=== PATIENT | male | born 1950 | race Caucasian/White ===

== ENCOUNTER 2016-09-04 16:35 | Inpatient (IN) | payer OTHER, MEDICARE ==
[~2016-09-04] VITALS: Ht 182.9 cm; Wt 87.5 kg
[2016-09-04 16:37] VITALS: BP 135/82; PULSE 84; RESP 16; TEMP 97.8; O2SAT 97
[2016-09-04 17:44] VITALS: BP 142/92; PULSE 82; RESP 16; O2SAT 95
[2016-09-04] MEDS ORDERED: SODIUM CHLORIDE 0.9% FLUSH 10 ML FLUSH IVF PRN (17:45)
[2016-09-04] MEDS ORDERED: ASPIRIN 325 MG TAB PO ONE (17:45)
[2016-09-04] MEDS ORDERED: ASPI81TA11 PO (18:04)
[2016-09-04] MEDS ORDERED: LOSA100T PO (18:04)
--- NOTE | 2016-09-04 18:09 | RADRPT ---
EXAM DATE/TIME: 09/04/2016 17:52 [place] COMPARISON: No previous studies available for comparison. INDICATIONS : Chest pain. Short of breath. MEDICAL HISTORY : None. SURGICAL HISTORY : None. ENCOUNTER: Initial ACUITY: 2 days PAIN SCORE: 0/10 LOCATION: Bilateral chest FINDINGS: A single view of the chest demonstrates patchy basilar airspace disease. Small effusions. No pneumoth orax. Heart size upper limits normal. CONCLUSION: 1. Patchy basilar airspace disease with small effusions. Differential diagnosis includes pulmonary ed terry and bronchopneumonia. Marko Rain MD on September 04, 2016 at 18:04 Board Certified Radiologist. This report was verified electronically.
--- NOTE | 2016-09-04 18:11 | PD ---
HPI Chief Complaint: Chest Pain Time Seen by Provider: 18:07 Travel History International Travel<30 days: No Contact w/Intl Traveler<30days: No Traveled to known affect area: No History of Present Illness HPI 66-year-old male that presents to the ED for evaluation of shortness of breath with exertion. Per patient his been ongoing for the past couple weeks. Per patient it became more significant the past couple days and is [facility] and the told to come here. He denies any chest pain at this time. Per patient he only has the chest pain and shortness of breath only with exertion. Per patient he was able to "walked off" but is no longer the case. Per patient is progressively getting more significant. He denies any history of blood clots. He has a history of hypertension and old history of smoking. He takes an aspirin every day. No history of heart disease on himself. No bowel movement or urinary issues. No fevers chills or sweats. No cough or runny nose. No allergies to medication. No abdominal pain. No nausea or vomiting. Patient comes here with family in no acute distress. Patient did took a baby aspirin today. Per patient the discomfort at this time is 0 and he has no pain unless he starts to walk for some distance. Per patient he excused himself that sensation is more like pressure and is 4 out of 10. He does report that about a week ago he had an episode of syncope which she attributed to being outside on the heat. Per patient he had to put ice and rehydrate himself and he felt that this was related more to heat than anything else. He was not seen by anybody for this syncopal episode. [facility] Past Medical History Medical History: Denies Significant Hx Influenza Vaccination: No Past Surgical History Oral Surgery: Yes (JAW SURGERY) Social History Alcohol Use: Yes (OCCASIONALLY) Tobacco Use: No Substance Use: No Allergies-Medications (Allergen,Severity, Reaction): Coded Allergies: No Known Allergies (Unverified , 09/04/16) Reported Meds & Prescriptions Reported Meds & Active Scripts Active Reported Aspirin EC (Aspirin) 81 Mg Tabdr 81 Mg PO DAILY Losartan (Losartan Potassium) 100 Mg Tab 100 Mg PO DAILY Review of Systems Except as stated in HPI: all other systems reviewed are Neg Physical Exam Narrative GENERAL: SKIN: Warm and dry. HEAD: Atraumatic. Normocephalic. EYES: Pupils equal and round. No scleral icterus. No injection or drainage. ENT: No nasal bleeding or discharge. Mucous membranes pink and moist. Tongue is midline. No uvula deviation. NECK: Trachea midline. No JVD. CARDIOVASCULAR: Regular rate and rhythm. No murmurs, S3, S4. RESPIRATORY: No accessory muscle use. Clear to auscultation. Breath sounds equal bilaterally. GASTROINTESTINAL: Abdomen soft, non-tender, nondistended. Hepatic and splenic margins not palpable. MUSCULOSKELETAL: Extremities without clubbing, cyanosis, or edema. No obvious deformities. Full range of motion of the upper and lower extremities bilaterally. 2+ pulses bilaterally. No lumbar, thoracic, cervical spine tenderness to palpation. Chest is reproducible with touch. NEUROLOGICAL: Awake and alert. No obvious cranial nerve deficits. Motor grossly within normal limits. Five out of 5 muscle strength in the arms and legs. Normal speech. PSYCHIATRIC: Appropriate mood and affect; insight and judgment normal. Data Data Last Documented VS Vital Signs Date Time Temp Pulse Resp B/P Pulse Ox O2 Delivery O2 Flow Rate FiO2 09/04/16 17:44 82 16 142/92 95 Room Air 09/04/16 16:37 97.8 Orders Electrocardiogram (09/04/16 17:41) Basic Metabolic Panel (Bmp) (09/04/16 17:41) B-Type Natriuretic Peptide (09/04/16 17:41) Ckmb (Isoenzyme) Profile (09/04/16 17:41) Complete Blood Count With Diff (09/04/16 17:41) Magnesium (Mg) (09/04/16 17:41) Prothrombin Time / Inr (Pt) (09/04/16 17:41) Act Partial Throm Time (Ptt) (09/04/16 17:41) Troponin I (09/04/16 17:41) Chest, Single Ap (09/04/16 17:41) Ecg Monitoring (09/04/16 17:41) Bilateral Bp Monitoring (09/04/16 17:41) Iv Access Insert/Monitor (09/04/16 17:41) Oximetry (09/04/16 17:41) Oxygen Administration (09/04/16 17:41) Aspirin (Aspirin) (09/04/16 17:45) Sodium Chloride 0.9% Flush (Ns Flush) (09/04/16 17:45) CKMB (09/04/16 18:05) CKMB% (09/04/16 18:05) Nitroglycerin 2% Oint (Nitroglycerin 2% (09/04/16 19:00) Heparin Infusion MATTI.Q1H (09/04/16 18:53) Heparin Inj (Heparin Inj) (09/04/16 19:00) Heparin Inj (Heparin Inj) (09/05/16 01:00) Heparin Inj (Heparin Inj) (09/05/16 01:00) Heparin-D5w Inj (Heparin-D5w Inj) (09/04/16 19:00) Cbc No Diff, Includes Plts (09/07/16 06:00) Act Partial Throm Time (Ptt) (09/05/16 01:53) Occult Blood (Hemoccult) Stool (09/04/16 18:53) Admit Order (Ed Use Only) (09/04/16 19:40) Consult Cardiology (09/04/16 ) Labs Laboratory Tests Test 09/04/16 18:05 White Blood Count 8.1 TH/MM3 Red Blood Count 4.31 MIL/MM3 Hemoglobin 13.0 GM/DL Hematocrit 37.9 % Mean Corpuscular Volume 87.8 FL Mean Corpuscular Hemoglobin 30.1 PG Mean Corpuscular Hemoglobin 34.3 % Concent Red Cell Distribution Width 13.0 % Platelet Count 255 TH/MM3 Mean Platelet Volume 8.2 FL Neutrophils (%) (Auto) 62.1 % Lymphocytes (%) (Auto) 25.4 % Monocytes (%) (Auto) 9.6 % Eosinophils (%) (Auto) 2.2 % Basophils (%) (Auto) 0.7 % Neutrophils # (Auto) 5.0 TH/MM3 Lymphocytes # (Auto) 2.1 TH/MM3 Monocytes # (Auto) 0.8 TH/MM3 Eosinophils # (Auto) 0.2 TH/MM3 Basophils # (Auto) 0.1 TH/MM3 CBC Comment DIFF FINAL Differential Comment Prothrombin Time 10.2 SEC Prothromb Time International 0.9 RATIO Ratio Activated Partial 29.9 SEC Thromboplast Time Sodium Level 140 MEQ/L Potassium Level 4.1 MEQ/L Chloride Level 106 MEQ/L Carbon Dioxide Level 26.2 MEQ/L Anion Gap 8 MEQ/L Blood Urea Nitrogen 17 MG/DL Creatinine 1.01 MG/DL Estimat Glomerular Filtration 74 ML/MIN Rate Random Glucose 81 MG/DL Calcium Level 8.6 MG/DL Magnesium Level 2.1 MG/DL Total Creatine Kinase 317 U/L Creatine Kinase MB 30.5 NG/ML Creatine Kinase MB % 9.6 % Troponin I 7.81 NG/ML B-Type Natriuretic Peptide 389 PG/ML MDM Medical Decision Making Medical Screen Exam Complete: Yes Emergency Medical Condition: Yes Medical Record Reviewed: Yes Interpretation(s) CBC & BMP Diagram 09/04/16 18:05 BNP in the 300s troponin is 7 CKMB negative EKG did not show any sign of acute ST elevations read by me and my attending. Last Impressions Chest X-Ray 09/04/16 1741 Signed Impressions: Service Date/Time: Sunday, September 04, 2016 17:52 - CONCLUSION: 1. Patchy basilar airspace disease with small effusions. Differential diagnosis includes pulmonary edema and bronchopneumonia. Marko Rain MD Differential Diagnosis Chest pain versus atypical chest pain versus ACS versus angina versus pneumonia Narrative Course 66-year-old male that presents to the ED for evaluation of chest pain. Patient was properly examined and was found to have signs and symptoms consistent with appears to be cardiac. At this time I recommend labs and imaging. Patient agrees with this. Aspirin was ordered. Initial EKG did not show any sign of acute ischemia read by me and my attending. Labs did show elevated BNP, pulmonary edema, troponin of 7. Patient likely had an N-STEMI. Patient will be started on heparin. Patient was put on Nitropaste. Patient was told results and agrees with plan. He is still chest pain free and has no symptoms at this time. My attending Dr Bryson evaluated the patient with me and recommends admission and Cardiology eval as well as Heparin. Patient will be admitted. Dr. Narayan from Cardiology was contacted and he recommends admission. My attending spoke with him. Patient was started heparin and nitro paste. Patient was admitted to Dr. Khan who agrees to admission. Procedures EKG Prior to Arrival: No Diagnosis Primary Impression: Non-ST elevation (NSTEMI) myocardial infarction Admitting Information Admitting Physician Requests: Admit Surinder Miles Sep 04, 2016 18:11
[2016-09-04 18:21] LABS: BASOPHIL # 0.1 TH/MM3 (0-0.2); BASOPHIL % 0.7 % (0.0-2.0); EOSINOPHIL # 0.2 TH/MM3 (0-0.4); EOSINOPHIL % 2.2 % (0.0-4.0); HEMATOCRIT 37.9 % (39.0-51.0); HEMO FLAGS DIFF FINAL; LYMPH % 25.4 % (9.0-44.0); LYMPHOCYTE # 2.1 TH/MM3 (1.0-4.8); MEAN CELL VOLUME 87.8 FL (80.0-100.0); MEAN CORPUSCULAR HEMOGLOBIN 30.1 PG (27.0-34.0); MEAN CORPUSCULAR HGB CONC 34.3 % (32.0-36.0); MONO % 9.6 % (0.0-8.0); NEUT % 62.1 % (16.0-70.0); PLATELET COUNT 255 TH/MM3 (150-450); RED BLOOD COUNT 4.31 MIL/MM3 (4.50-5.90); WHITE BLOOD COUNT 8.1 TH/MM3 (4.0-11.0)
[2016-09-04 18:32] LABS: APTT (PATIENT) 29.9 SEC (24.3-30.1); INTERNATIONAL NORMALIZED RATIO 0.9 RATIO; PROTHROMBIN TIME - PATIENT 10.2 SEC (9.8-11.6)
[2016-09-04 18:39] LABS: BICARBONATE 26.2 MEQ/L (21.0-32.0); MAGNESIUM 2.1 MG/DL (1.5-2.5); POTASSIUM 4.1 MEQ/L (3.5-5.1)
[2016-09-04] MEDS ORDERED: HEPARIN SODIUM - IV 10,000 UNITS/10 ML VIAL IV ONE (19:00)
[2016-09-04] MEDS ORDERED: NITROGLYCERIN 2% OINT 1 GM PACKET TOPICAL ONE (19:00)
[2016-09-04 19:01] LABS: CKMB 30.5 NG/ML (0.5-3.6)
[2016-09-04] MEDS: HEPARIN-D5W INJ 250 ML IV SCH (19:07)
--- NOTE | 2016-09-04 19:10 | PD ---
Data Data Last Documented VS Vital Signs Date Time Temp Pulse Resp B/P Pulse Ox O2 Delivery O2 Flow Rate FiO2 09/04/16 17:44 82 16 142/92 95 Room Air 09/04/16 16:37 97.8 Orders Electrocardiogram (09/04/16 17:41) Basic Metabolic Panel (Bmp) (09/04/16 17:41) B-Type Natriuretic Peptide (09/04/16 17:41) Ckmb (Isoenzyme) Profile (09/04/16 17:41) Complete Blood Count With Diff (09/04/16 17:41) Magnesium (Mg) (09/04/16 17:41) Prothrombin Time / Inr (Pt) (09/04/16 17:41) Act Partial Throm Time (Ptt) (09/04/16 17:41) Troponin I (09/04/16 17:41) Chest, Single Ap (09/04/16 17:41) Ecg Monitoring (09/04/16 17:41) Bilateral Bp Monitoring (09/04/16 17:41) Iv Access Insert/Monitor (09/04/16 17:41) Oximetry (09/04/16 17:41) Oxygen Administration (09/04/16 17:41) Aspirin (Aspirin) (09/04/16 17:45) Sodium Chloride 0.9% Flush (Ns Flush) (09/04/16 17:45) CKMB (09/04/16 18:05) CKMB% (09/04/16 18:05) Nitroglycerin 2% Oint (Nitroglycerin 2% (09/04/16 19:00) Heparin Infusion MATTI.Q1H (09/04/16 18:53) Heparin Inj (Heparin Inj) (09/04/16 19:00) Heparin Inj (Heparin Inj) (09/05/16 01:00) Heparin Inj (Heparin Inj) (09/05/16 01:00) Heparin-D5w Inj (Heparin-D5w Inj) (09/04/16 19:00) Act Partial Throm Time (Ptt) (09/04/16 18:53) Prothrombin Time / Inr (Pt) (09/04/16 18:53) Cbc No Diff, Includes Plts (09/04/16 18:53) Cbc No Diff, Includes Plts (09/07/16 06:00) Act Partial Throm Time (Ptt) (09/05/16 01:53) Occult Blood (Hemoccult) Stool (09/04/16 18:53) Labs Laboratory Tests Test 09/04/16 18:05 White Blood Count 8.1 TH/MM3 Red Blood Count 4.31 MIL/MM3 Hemoglobin 13.0 GM/DL Hematocrit 37.9 % Mean Corpuscular Volume 87.8 FL Mean Corpuscular Hemoglobin 30.1 PG Mean Corpuscular Hemoglobin 34.3 % Concent Red Cell Distribution Width 13.0 % Platelet Count 255 TH/MM3 Mean Platelet Volume 8.2 FL Neutrophils (%) (Auto) 62.1 % Lymphocytes (%) (Auto) 25.4 % Monocytes (%) (Auto) 9.6 % Eosinophils (%) (Auto) 2.2 % Basophils (%) (Auto) 0.7 % Neutrophils # (Auto) 5.0 TH/MM3 Lymphocytes # (Auto) 2.1 TH/MM3 Monocytes # (Auto) 0.8 TH/MM3 Eosinophils # (Auto) 0.2 TH/MM3 Basophils # (Auto) 0.1 TH/MM3 CBC Comment DIFF FINAL Differential Comment Prothrombin Time 10.2 SEC Prothromb Time International 0.9 RATIO Ratio Activated Partial 29.9 SEC Thromboplast Time Sodium Level 140 MEQ/L Potassium Level 4.1 MEQ/L Chloride Level 106 MEQ/L Carbon Dioxide Level 26.2 MEQ/L Anion Gap 8 MEQ/L Blood Urea Nitrogen 17 MG/DL Creatinine 1.01 MG/DL Estimat Glomerular Filtration 74 ML/MIN Rate Random Glucose 81 MG/DL Calcium Level 8.6 MG/DL Magnesium Level 2.1 MG/DL Total Creatine Kinase 317 U/L Troponin I 7.81 NG/ML B-Type Natriuretic Peptide 389 PG/ML [facility] Supervised Visit with ALEX: Yes Narrative Course The history, exam, and medical decision-making in the associated mid-level provider note were completed with my assistance. I reviewed and agree with the findings presented. I attest that I had a [id number] encounter with the patient on the same day, and personally performed and documented my assessment and findings in the medical record. *My assessment and Findings: 66-year-old man with exertional pressure-like chest discomfort and shortness of breath ongoing for couple weeks, gradually worsening, concerning for ACS or CHF. EKG shows some nonspecific lateral ST changes. Initial troponin is elevated about 7. Patient is having and STEMI, and possibly had an AR earlier about a week or so ago and is not having heart failure symptoms as well. We'll plan on heparin, nitroglycerin, admission to medicine, cardiology consult. Patient has not had any chest discomfort or shortness of breath since being in the emergency department. Diagnosis Primary Impression: Non-ST elevation (NSTEMI) myocardial infarction Brandon Bryson MD Sep 04, 2016 19:10
[2016-09-04] MEDS ORDERED: NALOXONE HCL 0.4 MG/ML AMP IV PRN (20:00)
[2016-09-04] MEDS ORDERED: SODIUM CHLORIDE 0.9% FLUSH 10 ML FLUSH IV FLUSH PRN (20:00)
[2016-09-04] MEDS: SODIUM CHLORIDE 0.9% FLUSH 10 ML FLUSH IV FLUSH SCH (21:00)
[2016-09-04 22:16] VITALS: BP 118/69; PULSE 73; RESP 18; TEMP 98.3; O2SAT 95
[2016-09-04 22:30] VITALS: PULSE 73
--- NOTE | 2016-09-04 23:44 | HHI.HP ---
[facility] Service [facility] Primary Care Physician [facility] Admission Diagnosis NSTEMI, pulmonary edema Diagnoses: Chief Complaint: SOB with exertion Travel History International Travel<30 Days: No Contact w/Intl Traveler <30 Da: No Traveled to Known Affected Are: No History of Present Illness Written by Ada Cowart, acting as scribe for Dr. Khan on 09/04/16 at 23: 51. The pleasant 66-year-old male gentleman with past medical history which includes hypertension. Patient reports he usually walks every morning but over the past few weeks he has had SOB and near vomiting with this exertion. Then last Saturday patient was out in the heat waxing a car and reports he got, "over heated." Patient was laying down trying to cool off then vomited and passed out on 08/28/16. Since that time he has continued to have SOB and noticed that he fatigues more easily over the past few weeks. SOB worse with exertion better with rest. Patient report, "As long as I'm sitting still I feel fine." At first patient denies specific chest pain reports then, "maybe a little pain." Patient unable to elaborate on description of chest pain. Initial troponin 7.81. Initial EKG reviewed and reveals SR rate 77 bpm with no acute ST changes noted Of note patient traveled from [place] via Saturday08/30/16, patient denies calf edema or pain. Patient continued to have SOB with exertion therefore proceeded to the [facility] for evaluation and was referred to ER for further evaluation Review of Systems Except as stated in HPI: all other systems reviewed are Neg Past Family Social History Past Medical History HTN Past Surgical History Colonoscopy 2012 polypectomy repair of jaw fracture Reported Medications Aspirin EC (Aspirin) 81 Mg Tabdr 81 Mg PO DAILY Losartan (Losartan Potassium) 100 Mg Tab 100 Mg PO DAILY Allergies: Coded Allergies: No Known Allergies (Unverified , 09/04/16) Active Ordered Medications Current Medications Medications (Trade) Dose Ordered Sig/Luz Marina Route Start Time Stop Time Status Last Admin (Heparin Inj) 5,000 units UNSCH PRN IV 09/05/16 01:00 Heparin Sodium (Porcine) 2500 units 2,500 units UNSCH PRN IV 09/05/16 01:00 (Heparin-D5W Inj) 250 ml @ 0 mls/hr TITRATE IV 09/04/16 19:00 09/04/16 19:07 (NS Flush) 2 ml UNSCH PRN IV FLUSH 09/04/16 20:00 (NS Flush) 2 ml BID IV FLUSH 09/04/16 21:00 (Narcan Inj) 0.4 mg UNSCH PRN IV 09/04/16 20:00 (Ecotrin Ec) 81 mg DAILY PO 09/05/16 09:00 (Cozaar) 100 mg DAILY PO 09/05/16 09:00 Family History father secondary to esophogeal CA mother secondary to CVA no cardiac issues in family members <40 years old Social History Quit smoking 20 years ago moderate ETOH use not ion a daily basis Physical Exam Vital Signs Vital Signs Date Time Temp Pulse Resp B/P Pulse Ox O2 Delivery O2 Flow Rate FiO2 09/04/16 17:44 82 16 142/92 95 Room Air 09/04/16 16:37 97.8 84 16 135/82 97 Physical Exam GENERAL: This is a well-nourished, well-developed patient, in no apparent distress. SKIN: No rashes, ecchymoses or lesions. Cool and dry. HEAD: Atraumatic. Normocephalic. No temporal or scalp tenderness. EYES: Extraocular motions intact. No scleral icterus. No injection or drainage. CARDIOVASCULAR: Regular rate and rhythm without murmurs, gallops, or rubs. RESPIRATORY: Clear to auscultation. Breath sounds equal bilaterally. No wheezes , rales, or rhonchi. GASTROINTESTINAL: Abdomen soft, non-tender, nondistended. No hepato-splenomegaly , or palpable masses. No guarding. MUSCULOSKELETAL: Extremities without clubbing, cyanosis, or edema. No joint tenderness, effusion, or edema noted. No calf tenderness. Negative Homans sign bilaterally. NEUROLOGICAL: Awake and alert. No focal deficits appreciated. Motor and sensory grossly within normal limits. Five out of 5 muscle strength in all muscle groups. Normal speech. Laboratory Laboratory Tests Test 09/04/16 18:05 White Blood Count 8.1 Red Blood Count 4.31 Hemoglobin 13.0 Hematocrit 37.9 Mean Corpuscular Volume 87.8 Mean Corpuscular Hemoglobin 30.1 Mean Corpuscular Hemoglobin 34.3 Concent Red Cell Distribution Width 13.0 Platelet Count 255 Mean Platelet Volume 8.2 Neutrophils (%) (Auto) 62.1 Lymphocytes (%) (Auto) 25.4 Monocytes (%) (Auto) 9.6 Eosinophils (%) (Auto) 2.2 Basophils (%) (Auto) 0.7 Neutrophils # (Auto) 5.0 Lymphocytes # (Auto) 2.1 Monocytes # (Auto) 0.8 Eosinophils # (Auto) 0.2 Basophils # (Auto) 0.1 CBC Comment DIFF FINAL Differential Comment Prothrombin Time 10.2 Prothromb Time International 0.9 Ratio Activated Partial 29.9 Thromboplast Time Sodium Level 140 Potassium Level 4.1 Chloride Level 106 Carbon Dioxide Level 26.2 Anion Gap 8 Blood Urea Nitrogen 17 Creatinine 1.01 Estimat Glomerular Filtration 74 Rate Random Glucose 81 Calcium Level 8.6 Magnesium Level 2.1 Total Creatine Kinase 317 Creatine Kinase MB 30.5 Creatine Kinase MB % 9.6 Troponin I 7.81 B-Type Natriuretic Peptide 389 Result Diagram: 09/04/16 1805 09/04/16 180 Imaging Last Impressions Chest X-Ray 09/04/16 1741 Signed Impressions: Service Date/Time: Sunday, September 04, 2016 17:52 - CONCLUSION: 1. Patchy basilar airspace disease with small effusions. Differential diagnosis includes pulmonary edema and bronchopneumonia. Marko Rain MD Assessment and Plan Problem List: (1) Non-ST elevation (NSTEMI) myocardial infarction ICD Code: I21.4 Status: Acute Assessment and Plan The pleasant 66-year-old male gentleman with past medical history which includes hypertension. Presents to the emergency department due to worsening shortness of breath with exertion and troponin of 7.81 NSTEMI: Initial troponin elevated 7.81 Initial EKG reviewed and reveals sinus rhythm rate 77 bpm with no acute ST changes noted continue serial troponin and EKG Continuous court recording monitor Consult cardiology- ER MD spoke with Dr. Narayan Heparin drip, nitro paste aspirin daily NPO after midnight Lipid profile in AM Chest x-ray reviewed and reveals patchy bilateral air space disease with small effusions. Differential diagnosis includes pulmonary edema and bronchial pneumonia HTN- chronic continue home medication losartan 100mg daily DVT prophylaxis patient on heparin drip Discussed with ER provider, nursing, patient and at bedside Physician Certification 2 Midnight Certification Type: Admission for Inpatient Services Order for Inpatient Services The services are ordered in accordance with Medicare regulations or non- Medicare payer requirements, as applicable. In the case of services not specified as inpatient-only, they are appropriately provided as inpatient services in accordance with the 2-midnight benchmark. Estimated LOS (days): 3 days is the estimated time the patient will need to remain in the hospital, assuming treatment plan goals are met and no additional complications. Post-Hospital Plan: Home Ada Cowart Sep 04, 2016 23:44
[2016-09-05] VITALS (24 sets, daily range): BP systolic 112–135; BP diastolic 55–80; PULSE 60–80; RESP 18–20; TEMP 97.8–98.8; O2SAT 94–97
[2016-09-05] MEDS: NITROGLYCERIN 2% OINT 1 GM PACKET TOPICAL SCH ×4 (00:45→18:00)
[2016-09-05] MEDS ORDERED: HEPARIN SODIUM - IV 10,000 UNITS/10 ML VIAL IV PRN ×2 (01:00)
[2016-09-05 05:58] LABS: AUTOMATED NEUTROPHIL # 4.4 TH/MM3 (1.8-7.7); BASOPHIL % 0.6 % (0.0-2.0); EOSINOPHIL # 0.2 TH/MM3 (0-0.4); EOSINOPHIL % 2.6 % (0.0-4.0); HEMATOCRIT 34.8 % (39.0-51.0); HEMO FLAGS DIFF FINAL; LYMPH % 28.2 % (9.0-44.0); LYMPHOCYTE # 2.1 TH/MM3 (1.0-4.8); MEAN CELL VOLUME 86.8 FL (80.0-100.0); MEAN CORPUSCULAR HEMOGLOBIN 30.3 PG (27.0-34.0); MEAN CORPUSCULAR HGB CONC 34.9 % (32.0-36.0); MONO % 9.7 % (0.0-8.0); NEUT % 58.9 % (16.0-70.0); PLATELET COUNT 231 TH/MM3 (150-450); RED BLOOD COUNT 4.01 MIL/MM3 (4.50-5.90); RED CELL DISTRIBUTION WIDTH 13.2 % (11.6-17.2); WHITE BLOOD COUNT 7.5 TH/MM3 (4.0-11.0)
[2016-09-05 06:27] LABS: BICARBONATE 23.2 MEQ/L (21.0-32.0); POTASSIUM 3.8 MEQ/L (3.5-5.1)
[2016-09-05 06:32] LABS: HDL CHOLESTEROL 39.2 MG/DL (40.0-60.0)
--- NOTE | 2016-09-05 06:50 | EKG ---
Date Performed: 09/04/2016 Time Performed: 17:53:30 PTAGE: 66 years EKG: Sinus rhythm NONSPECIFIC ST & T-WAVE ABNORMALITY BORDERLINE ECG NO PREVIOUS TRACING DOCTOR: Irving Sandra Interpretating Date/Time 09/05/2016 06:48:23
[2016-09-05] MEDS ORDERED: LOSARTAN 50 MG TAB PO SCH (09:00)
[2016-09-05] MEDS: ASPIRIN EC 81 MG TABEC PO SCH (09:21)
[2016-09-05] MEDS: SODIUM CHLORIDE 0.9% FLUSH 10 ML FLUSH IV FLUSH SCH (09:21)
--- NOTE | 2016-09-05 09:35 | HHI.PR ---
Subjective Remarks This is a pleasant 66 y/o Male with Hypertension, Then last Saturday patient was out in the heat waxing a car and reports he got, "over heated." Patient was laying down trying to cool off then vomited and passed out on . Since that time he has continued to have SOB and noticed that he fatigues more easily over the past few weeks. SOB worse with exertion better with rest. complaint of Chest pain and his Troponin 7.81 He has Hypertension. 09/05: Seen in his bedroom in the presence of his , with Cardiac Cath with multivessel disease status post Cardiovascular home care specialist consult for CABG next week. No nausea, vomit or diarrhea, no chest pain. Objective Vital Signs Date Time Temp Pulse Resp B/P Pulse Ox O2 Delivery O2 Flow Rate FiO2 09/05/16 06:00 62 09/05/16 05:00 64 09/05/16 04:00 98.4 66 18 115/67 95 09/05/16 04:00 66 09/05/16 03:00 63 09/05/16 02:00 74 09/05/16 01:00 68 09/05/16 00:00 76 09/04/16 22:30 73 09/04/16 22:16 98.3 73 18 118/69 95 09/04/16 17:44 82 16 142/92 95 Room Air 09/04/16 16:37 97.8 84 16 135/82 97 I/O 09/04/16 09/04/16 09/04/16 09/05/16 09/05/16 09/05/16 07:00 15:00 23:00 07:00 15:00 23:00 Output Total 600 ml Balance -600 ml Output Urine Total 600 ml Result Diagram: 09/05/16 0500 09/05/16 0500 Imaging Last Impressions Chest X-Ray 09/04/16 9921 Signed Impressions: Service Date/Time: Sunday, September 04, 2016 17:52 - CONCLUSION: 1. Patchy basilar airspace disease with small effusions. Differential diagnosis includes pulmonary edema and bronchopneumonia. Marko Rain MD Procedures No procedures performed. Other Results Laboratory Tests Test 09/04/16 09/05/16 09/05/16 18:05 02:14 05:00 Prothrombin Time 10.2 SEC Prothromb Time International 0.9 RATIO Ratio Magnesium Level 2.1 MG/DL Creatine Kinase MB 30.5 NG/ML Creatine Kinase MB % 9.6 % B-Type Natriuretic Peptide 389 PG/ML Activated Partial 42.0 SEC Thromboplast Time White Blood Count 7.5 TH/MM3 Red Blood Count 4.01 MIL/MM3 Hemoglobin 12.2 GM/DL Hematocrit 34.8 % Mean Corpuscular Volume 86.8 FL Mean Corpuscular Hemoglobin 30.3 PG Mean Corpuscular Hemoglobin 34.9 % Concent Red Cell Distribution Width 13.2 % Platelet Count 231 TH/MM3 Mean Platelet Volume 8.5 FL Neutrophils (%) (Auto) 58.9 % Lymphocytes (%) (Auto) 28.2 % Monocytes (%) (Auto) 9.7 % Eosinophils (%) (Auto) 2.6 % Basophils (%) (Auto) 0.6 % Neutrophils # (Auto) 4.4 TH/MM3 Lymphocytes # (Auto) 2.1 TH/MM3 Monocytes # (Auto) 0.7 TH/MM3 Eosinophils # (Auto) 0.2 TH/MM3 Basophils # (Auto) 0.0 TH/MM3 CBC Comment DIFF FINAL Differential Comment Sodium Level 139 MEQ/L Potassium Level 3.8 MEQ/L Chloride Level 106 MEQ/L Carbon Dioxide Level 23.2 MEQ/L Anion Gap 10 MEQ/L Blood Urea Nitrogen 20 MG/DL Creatinine 1.04 MG/DL Estimat Glomerular Filtration 72 ML/MIN Rate Random Glucose 94 MG/DL Calcium Level 8.1 MG/DL Total Creatine Kinase 257 U/L Troponin I 9.07 NG/ML Triglycerides Level 78 MG/DL Cholesterol Level 143 MG/DL LDL Cholesterol 88 MG/DL HDL Cholesterol 39.2 MG/DL Cholesterol/HDL Ratio 3.64 RATIO Objective Remarks GENERAL: This is a well-nourished, well-developed patient, in no apparent distress. SKIN: No rashes, ecchymoses or lesions. Cool and dry. HEAD: Atraumatic. Normocephalic. No temporal or scalp tenderness. EYES: Extraocular motions intact. No scleral icterus. No injection or drainage. CARDIOVASCULAR: Regular rate and rhythm without murmurs, gallops, or rubs. RESPIRATORY: Clear to auscultation. Breath sounds equal bilaterally. No wheezes , rales, or rhonchi. GASTROINTESTINAL: Abdomen soft, non-tender, nondistended. No hepato-splenomegaly , or palpable masses. No guarding. MUSCULOSKELETAL: Extremities without clubbing, cyanosis, or edema. No joint tenderness, effusion, or edema noted. No calf tenderness. Negative Homans sign bilaterally. NEUROLOGICAL: Awake and alert. No focal deficits appreciated. Motor and sensory grossly within normal limits. Five out of 5 muscle strength in all muscle groups. Normal speech. Medications and IVs Current Medications Medications (Trade) Dose Ordered Sig/Luz Marina Route Start Time Stop Time Status Last Admin (Heparin Inj) 5,000 units UNSCH PRN IV 09/05/16 01:00 Heparin Sodium (Porcine) 2500 units 2,500 units UNSCH PRN IV 09/05/16 01:00 (Heparin-D5W Inj) 250 ml @ 0 mls/hr TITRATE IV 09/04/16 19:00 09/04/16 19:07 (NS Flush) 2 ml UNSCH PRN IV FLUSH 09/04/16 20:00 (NS Flush) 2 ml BID IV FLUSH 09/04/16 21:00 09/05/16 09:21 (Narcan Inj) 0.4 mg UNSCH PRN IV 09/04/16 20:00 (Ecotrin Ec) 81 mg DAILY PO 09/05/16 09:00 09/05/16 09:21 (Cozaar) 100 mg DAILY PO 09/05/16 09:00 09/05/16 09:21 (Nitroglycerin 2% Oint) 1 inch Q6HR TOPICAL 09/05/16 00:45 09/05/16 05:57 A/P Assessment and Plan 1. NSTEMI 66-year-old male with hypertension. Presents to the emergency department due to worsening shortness of breath with exertion and troponin of 7.81 Initial troponin elevated 7.81 Initial EKG reviewed and reveals sinus rhythm rate 77 bpm with no acute ST changes noted Continuous monitoring manager Status post Cardiac Catheterization with Multivessel disease as per fulfillment specialist for CABG next week. Heparin drip, nitro paste aspirin daily Chest x-ray reviewed and reveals patchy bilateral air space disease with small effusions. Differential diagnosis includes pulmonary edema and bronchial pneumonia HTN- chronic Controlled. continue home medication losartan 100mg daily DVT prophylaxis patient on heparin drip Discussed with Patient his and nurse Cristiana, all questions answered to the best of my abilities. Discharge Planning not yet cleared by Specialists. Tylor Kenney MD Sep 05, 2016 09:35
--- NOTE | 2016-09-05 09:53 | EKG ---
Date Performed: 09/05/2016 Time Performed: 05:30:36 PTAGE: 66 years EKG: Sinus rhythm Anterolateral ST-T changes, consider ischemia Abnormal ECG PREVIOUS TRACING : 09/05/2016 01.57 No significant change from previous tracing noted. DOCTOR: Irving Sandra Interpretating Date/Time 09/05/2016 09:53:25
--- NOTE | 2016-09-05 10:01 | EKG ---
Date Performed: 09/05/2016 Time Performed: 01:57:32 PTAGE: 66 years EKG: Sinus rhythm with borderline 1st degree A-V block Extensive ST-T changes are nonspecific Borderline ECG PREVIOUS TRACING : 09/04/2016 17.53 No significant change from previous tracing noted. DOCTOR: Irving Sandra Interpretating Date/Time 09/05/2016 09:59:51
[2016-09-05 10:03] LABS: APTT (PATIENT) 37.4 SEC (24.3-30.1)
--- NOTE | 2016-09-05 10:06 | MB ---
cc: OFELIA WILKINS DATE OF CONSULTATION 09/05/2016 DATE OF 1950 REASON FOR CONSULTATION Dpu-EY-zkgnmbytb TX. HISTORY OF PRESENT ILLNESS 66-year-old male with a cardiac risk factors that include hypertension and family history who presented to the emergency department with complaints of diaphoresis shortness of breath and mild chest pain. He was evaluated in the emergency. EKG revealed sinus rhythm with known specific ST changes, however initial cardiac markers were as high as 7.8. Note, the patient was admitted for a ofa-BO-kurpsyymi TX. He spent the night in the [facility]. He was started on a heparin drip, as well as aspirin and nitro-paste and consulted to cardiology for further management and evaluation. This morning, he reports feeling fine. He denies any cardiovascular complaints. REVIEW OF SYSTEMS Negative except for what is mentioned in the HPI. PAST MEDICAL HISTORY Hypertension MEDICATIONS Home medication, Losartan. ALLERGIES NO KNOWN DRUG ALLERGIES. PAST SURGICAL HISTORY 1. Colonoscopy in 2011 2. Repair of a radial fracture FAMILY HISTORY Dad had CAD as well as mother and he has a sister with diabetes. SOCIAL HISTORY He quit smoking 20 years ago. He drinks alcohol socially. He denies any illicit drug use. PHYSICAL EXAMINATION VITAL SIGNS: Temperature 98, respiratory rate 18, pulse 62, blood pressure 115/ 67, O2 sat 95% room air. GENERAL: Her is awake, alert and oriented x3 in no acute distress. NECK: No JVD. No carotid bruits. HEART: Regular rate and rhythm. No murmurs, rubs or gallops. LUNGS: Clear to auscultation bilaterally. No wheezes or rhonchi or rales. ABDOMEN: Soft, nontender, nondistended with positive bowel sounds. EXTREMITIES: No cyanosis or edema. Pulses throughout. DATA CBC hemoglobin 12, hematocrit 34, platelet count 231, INR 0.9. Sodium 139, potassium 3.8, BUN 20, creatinine 1.04, troponin 7.81, 10, and 9.07. BNP 389, triglycerides 78, cholesterol 143, LDL 88, HDL 39. Chest x-ray, small pleural effusions suggestive of some pulmonary edema. EKG normal sinus rhythm with nonspecific ST changes. ASSESSMENT/PLAN 66-year-old male with cardiac risk factors that include hypertension, family history of CAD who presented to the hospital with a with a hnh-ME-axjsibygc TX. His AJ risk score is 3. He has been started on heparin. Currently he remains chest pain free and hemodynamically stable. Given presentation and AJ risk score, I think it would be reasonable to take him to the cardiac offset label rewinder for an early invasive strategy. The risks and benefits of left heart cath/ PCI including, but not limited to neurovascular trauma, infection, bleeding, acute kidney injury, stroke, emergent bypass surgery and has been explained to the patient, the patient understands the risk and is willing to proceed. RECOMMENDATIONS 1. Keep n.p.o. for left heart cath today. 2. Continue aggressive medical management for non-STEMI. Cont, Heparin drip aspirin, beta blockers, statin, JEFFERY Inhibitors. 3. Get 2-D echo to assess LV systolic function. Thank you for the opportunity to participate in the care of this patient. Follow up therapy to be determined. MD ERYN Horan/GERA /9:38 AM /10:02 AM RADHA
[2016-09-05] MEDS ORDERED: HEPARIN-NS/PF INJ 500 ML ONE (10:26)
[2016-09-05] MEDS ORDERED: IOHEXOL 350 MG/ML 50 ML BTL (for Cath Lab) OTHER ONE (10:37)
[2016-09-05] MEDS ORDERED: MIDAZOLAM HCL 2 MG/2 ML VIAL ONE (10:42)
[2016-09-05] MEDS ORDERED: NITROGLYCERIN INJ 5 ML ONE (11:14)
--- NOTE | 2016-09-05 11:33 | CATHPROC ---
Patient Name: TAMIKO POND Study #: [id number] Initial MD: Juan Daniel Solares Date of : 1950 Study Date: 09/05/2016 Cardiac Catheterization Report 09/05/2016 11:33:03 AM Financial #: [id number] 1 of 11 Patient Name: TAMIKO POND Study #: [id number] Initial MD: Juan Daniel Solares Date of : 1950 Study Date: 09/05/2016 Entire Case Report Patient Information Patient Name TAMIKO POND Date of 1950 Age 66 years Financial # [id number] Gender M AlternateID Lab Number 3 Room Number 248 Height (in) 72.0 Height (cm) 182.9 BSA 2.14 Weight (lbs) 202.4 Weight (kg) 92.0 Patient Address/Phone Number Home Address [facility] Home Phone Number [address] [facility] [id number] Study Information Study Number Admission Scheduled Start Study Start [id number] Sep 04 2016 7:42PM 09/05/2016 Sep 05 2016 10:33AM [facility] Cardiac Catheterization Admit Source Facility Department [facility] - Chemical Process Engineer Physician and Clinical Staff Initial Juan Daniel Foreman Forest Fire Lookoutclaudia Pino RN, Oneal Forest Fire LookoutAinsley Cobos RN Recorder Paul Dykes,RT(R) Scrub Anais Fuentes,RT(R) Procedures Performed Procedure Location (Site) Vessel Name Coronary Angiograms LCA Left Coronary Coronary Angiograms RCA Right Coronary L Heart Cath LV Gram-hand inj. LV LV Ventricle 09/05/2016 11:33:03 AM Financial #: [id number] 2 of 11 Patient Name: TAMIKO POND Study #: [id number] Initial MD: Juan Daniel Solares Date of : 1950 Study Date: 09/05/2016 Equipment Time E Business Project Manager Description Size Mfg Part Number Used/Scraped PERCLOSE, PRO GLIDE CLOSER 11:20 [place] CRITICAL [place]ARE FR 6 [id number] *[id number] Used DEVICE TRANSDUCER, TRUWAVE [id number] 11:04 BLEVINS RIDDLE * Used W/STOCKCOCK *[id number]-502-10.0- INTRODUCER SET, 11:04 [employer]OOK [employer]. FR 5 SC-NT-U-SST Used MICROPUNCTURE, STIFFENED *[id number] [id number] *[id number] 534-621T *[id number] 11:04 ReferStar INDUSTRIES PACK, CCL CUSTOM * Used *[id number] PSI-[id number]- 11:06 [employer] MEDICAL SHEATH, FR6.5 PRELUDE 11CM FR 6.5 038ACT Used *[id number] 11:04 [employer] MEDICAL WIRE, 3MMJ .035 180CM 180CM Used *[id number] 11:04 NAMIC MANIFOLD, 4 PORT * Used *[id number] 11:04 NYCOMED OMNIPAQUE, 350 MG, 150ML 150ML [id number] Used [id number] 11:04 ALICEA MEDICAL BLANKET,WARM AIR CCL * Used *[id number] 11:04 TERUMO MEDICAL SHEATH, FR5 TERUMO (10CM) FR 5 [id number] Used Equipment Model, Serial, Lot Number and Expiration Data Description Model Number Serial Number Lot Number Expiration Date PERCLOSE, PRO GLIDE CLOSER [id number] 05-15-2018 DEVICE SHEATH, FR6.5 PRELUDE 11CM [id number] 07-16-2019 Insurance Information Insurance Payor Medicare Third Democrat Third Democrat Number NF [facility] History: Allergies Allergy Reaction No Known Allergies 09/05/2016 11:33:03 AM Financial #: [id number] Patient Name: TAMIKO POND Study #: [id number] Initial MD: Juan Daniel Solares Date of : 1950 Study Date: 09/06/19 17 History: Risk Factors Family History of Hypertension Dyslipidemia Previous CA Previous Heart Failure Premature CAD Yes No Yes No No Prior Valve Prior PCI Prior CABG Surgery No No No Cerebrovascular Peripheral Artery Chronic Lung On Dialysis Diabetes Disease Disease Disease No No No No No History: Symptoms/Diagnosis Selection Items Chest pain History: Stress Tests Stress or Imaging Studies Performed No History: Other Disease Selection Items HTN History: Other Current Smoker Method Quit Packs a Day Years Used Pack Years No Cigarettes 20 Years Ago 1 10 10 Labs Hgb (g/dl) Hct (%) RBC (MIL/MM3) WBC (l/cumm) Platelets (thousands) 12.00-18.00 37.00-55.00 4.80-6.20 4.80-10.80 140.00-450.00 12.2 34.8 4 7.5 231 Glucose (mg/dl) BUN (mg/dl) Creatinine (mg/dl) BUN:Creatinine (1:x) 60.00-110.00 8.00-20.00 0.10-9.00 10.00-20.00 94 20 1.0 20 Na (meq/l) K (meq/l) Cl (meq/l) CO2 (mmol/L) Ca (mg/dl) 138.00-146.00 3.80-5.10 101.00-111.00 23.00-30.00 9.00-10.50 139 3.8 106 23.2 8.1 PT (sec) PTT (sec) INR (PTT:PT) 9.40-11.40 25.10-32.70 0.50-2.00 10.2 37.4 0.9 Troponin I (ng/ml) CPK (u/l) CPK-MB (ng/ML) 0.40-2.30 37.00-289.00 0.00-7.00 9 257 Not Drawn 09/05/2016 11:33:03 AM Financial #: [id number] Patient Name: TAMIKO POND Study #: [id number] Initial MD: Juan Daniel Solares Date of : 1950 Study Date: 09/05 Medication Medication Total Dose (Bolus/Oral) Medication Total Dosage/Unit 1% XYLOCAINE 20 mL FENTANYL 100 mcg NTG (IC) 200 mcg VERSED 2 mg Medications (Bolus/Oral) Medication Time Given Dosage/Unit Administered By Reason FENTANYL 09/05/2016 11:03:18 AM 50 mcg Alvarez PEACE, Oneal 50 mcg FENTANYL given in lab by Oneal Pino RN in Left Antecubital via Peripheral IV. VERSED 09/05/2016 11:03:20 AM 2 mg Alvarez PEACE, Oneal 2 mg VERSED given in lab by Oneal Pino RN in Left Antecubital via Peripheral IV. 1% XYLOCAINE 09/05/2016 11:04:01 AM 20 mL Oneal Pino RN 20 mL 1% XYLOCAINE given in lab by Oneal Pino RN in Right Groin via Subcutaneous. NTG (IC) 09/05/2016 11:14:16 AM 100 mcg Rain-Shoshana, Juan Daniel 100 mcg NTG (IC) given in lab by Sujatha Juan Daniel via Intra-coronary. NTG (IC) 09/05/2016 11:14:41 AM 100 mcg Rain-Shoshana, Juan Daniel 100 mcg NTG (IC) given in lab by Sujatha Juan Daniel via Intra-coronary. FENTANYL 09/05/2016 11:20:45 AM 50 mcg Oneal Pino RN 50 mcg FENTANYL given in lab by Oneal Pino RN in Left Antecubital via Peripheral IV. Medication (Drip) Medication Time Given Dosage/Unit Concentration/Unit Diluent (ml) Solutio n IV Solutions 09/05/2016 10:37:55 AM 0 mL (IV) 500 NaCl .9 IV Solutions given in lab by Oneal Pino RN in Left Antecubital via Peripheral IV. Pump/Drip Flow = 20 ml/hr using NaCl .9. 09/05/2016 11:33:03 AM Financial #: [id number] Patient Name: TAMIKO POND Study #: [id number] Initial MD: Juan Daniel Solares Date of : 1950 Study Date: 09/05/2016 Initial Case Assessment Cardiovascular HR Rhythm NIBP Chest Pain 83 Sinus 149/97 0 Edema Present Skin color Skin None Normal Warm Dry Circulatory - Right Pulses Dorsalis Pedis Femoral 1 2 Scale (0,1,2,3,4,d) Circulatory - Left Pulses Dorsalis Pedis Femoral 1 2 Scale (0,1,2,3,4,d) Neurological State Oriented to time-place- Alert Moves all extremities person Respiration - General Respiration Rate SpO2 (%) O2 (lpm) (B/min) 14 96 0 09/05/2016 11:33:03 AM Financial #: [id number] Patient Name: TAMIKO POND Study #: [id number] Initial MD: Juan Daniel Solares Date of : 1950 Study Date: 09/05/2016 Final Case Assessment Cardiovascular HR Rhythm NIBP Chest Pain 89 Sinus 139/92 0 Edema Present Skin color Skin None Normal Warm Dry Circulatory - Right Pulses Dorsalis Pedis Femoral 1 2 Scale (0,1,2,3,4,d) Circulatory - Left Pulses Dorsalis Pedis Femoral 1 2 Scale (0,1,2,3,4,d) Neurological State Oriented to time-place- Alert Moves all extremities person Respiration - General Respiration Rate SpO2 (%) O2 (lpm) (B/min) 24 96 2 Vitals Summary Pain Time HR NIBP SpO2 Resp Temp EtCO2 Apnea Harjeet Gordillo Comment Level 10:41:02 149/97 10 0 2 10:45:30 146/89 10 0 2 10:50:29 83 146/87 96.0 14 10 0 2 10:55:31 80 140/87 95.0 27 10 0 2 11:00:30 72 142/86 95.0 25 10 0 2 11:05:31 70 131/81 92.0 23 10 0 2 11:10:28 72 127/79 96.0 25 10 0 2 11:15:25 93 141/90 97.0 27 10 0 2 11:20:28 88 139/92 96.0 24 10 0 2 11:25:31 83 133/89 96.0 23 10 0 2 09/05/2016 11:33:03 AM Financial #: [id number] 7 of 11 Patient Name: TAMIKO POND Study #: [id number] Initial MD: Juan Daniel Solares Date of : 1950 Study Date: 09/05/2016 Harjeet Score Summary Time Activity Resp Circ LOC Color Total Score 10:41:02 2 2 2 2 2 10 10:45:30 2 2 2 2 2 10 10:50:29 2 2 2 2 2 10 10:55:31 2 2 2 2 2 10 11:00:30 2 2 2 2 2 10 11:05:31 2 2 2 2 2 10 11:10:28 2 2 2 2 2 10 11:15:25 2 2 2 2 2 10 11:20:28 2 2 2 2 2 10 11:25:31 2 2 2 2 2 10 Harjeet Score Definition Table Activity - 0 Activity - 1 Activity - 2 No Movement to Command Weak Hand Grasp Lift Head, Good Hand Grasp Respiration - 0 Respiration - 1 Respiration - 2 Apneic or Obstructed Shallow Breath, Airway Adjunct Deep Breath, Cough Freely Circulation - 0 Circulation - 1 Circulation - 2 B/P > 50% Admission B/P B/P > 20-50% Admission B/P B/P Stable X3 Level of Consciousness - 0 Level of Consciousness - 1 Level of Consciousness - 2 Not Responding Arousable On Calling Awake and Aware Color - 0 Color- 1 Color - 2 Cyanotic Lips, Nailbed, Skin Pale, Dusky [place] Or Normal Chronological Log Time Study Chronological Log 10:37:38 Patient arrived via Bed. 10:37:40 Patient Name, D.O.B, / Armband Verified By R.N. 10:37:42 Consent signed by the physician and the patient and verified by the Chemical Process Engineer staff. 10:37:45 Allens test performed on the right radial and ulnar artery. 10:37:46 Patient has been NPO for Less than 6Hrs. 10:37:48 Skin Breakdown- none per patient. 10:37:49 Patient Warmer Placed on the Table. 10:37:53 Ja Prominences Protected 10:37:54 A # 20 IV was noted in the Antecubital (left). Grade = 0 IV Solutions given in lab by Oneal Pino RN in Left Antecubital via Peripheral IV. Pump/Drip Flow = 20 ml/hr using NaCl 10:37:55 .9. 10:37:56 History and physical on the chart or being dictated. 09/05/2016 11:33:03 AM Financial #: [id number] 8 of 11 Patient Name: TAMIKO POND Study #: [id number] Initial MD: Juan Daniel Solares Date of : 1950 Study Date: 09/05/2016 Assessment: Initial Case, HR=83 BPM, Rhythm=Sinus, ORYM=905/97 mmhg, Chest Pain=0, Edema=None, Color=Normal, Skin = Warm, Dry Right Pulses: Randal Ped=1, Femoral=2 10:37:57 Left Pulses: Randal Ped=1, Femoral=2 Neurological: State=Alert, Ox3, FINNEGAN Respiration: Resp=14 B/min, SpO2=96 %, O2=0 lpm 10:38:01 Right groin prepped with 2% chlorhexidine, and with a 3 min. waiting time. Vitals capture started with the following parameters, Patient=Adult, Interval=5 min, Initial Pr shjbpi=959 mmHg, 10:39:49 Deflation Rate=5 mmHg 10:41:02 KCZV=641/97 mmhg, Pain=0, Harjeet=10, Gordillo=2 10:45:30 ECZS=823/89 mmhg, Pain=0, Harjeet=10, Gordillo=2 10:50:29 HR=83 bpm, OILZ=594/87 mmhg, SpO2=96.0 %, Resp=14 B/min, Pain=0, Harjeet=10, Gordillo=2 10:50:36 MD paged 10:51:01 Pressure channel 1 zeroed. 10:55:31 HR=80 bpm, UEXU=068/87 mmhg, SpO2=95.0 %, Resp=27 B/min, Pain=0, Harjeet=10, Gordillo=2 10:57:46 MD arrived. 11:00:30 HR=72 bpm, TOSI=923/86 mmhg, SpO2=95.0 %, Resp=25 B/min, Pain=0, Harjeet=10, Gordillo=2 Time Out. Correct patient, correct procedure,correct physician, power injector not loaded with contrast with surgical 11:02:37 team present. Time Out Concurred by MD, individual staff in procedure 11:03:18 50 mcg FENTANYL given in lab by Oneal Pino RN in Left Antecubital via Peripheral IV. 11:03:20 2 mg VERSED given in lab by Oneal Pino RN in Left Antecubital via Peripheral IV. 11:03:48 Case Start 11:04:01 20 mL 1% XYLOCAINE given in lab by Oneal Pino RN in Right Groin via Subcutaneous. 11:05:31 HR=70 bpm, DWOH=956/81 mmhg, SpO2=92.0 %, Resp=23 B/min, Pain=0, Harjeet=10, Gordillo=2 11:06:40 Access site was Right Femoral Artery. 11:06:47 A SHEATH, FR6.5 PRELUDE 11CM FR 6.5 was advanced into the Fem Art (right) using the Percuta neous technique. 11:08:08 An injection in the Fem Art (right) was made through the SHEATH, FR6.5 PRELUDE 11CM FR 6.5. A JR 4.0 INFINITI CATHETER FR 6 was advanced over a wire. OMNIPAQUE, 350 MG, 150ML 150ML was us ed for 11:08:39 injections. 11:09:52 The LV was manually injected with 6 cc's and visualized. OMNIPAQUE, 350 MG, 150ML 150ML use d. Recorded Pressure: LV, HR=72, Condition=Condition 1 11:10:16 (Left Ventricle) LV 115/13/27 11:10:28 HR=72 bpm, KWAX=073/79 mmhg, SpO2=96.0 %, Resp=25 B/min, Pain=0, Harjeet=10, Gordillo=2 11:10:31 Reference ECG taken Recorded Pressure: LV, Ao, HR=75, Condition=Condition 1 11:10:41 (Left Ventricle) LV 113/16/19, (Aorta) Ao 127/80/101 11:12:20 The RCA was injected and visualized at various angles. OMNIPAQUE, 350 MG, 150ML 150ML used . Recorded Pressure: Ao, HR=79, Condition=Condition 1 11:12:47 (Aorta) Ao 125/81/100 11:14:16 100 mcg NTG (IC) given in lab by Juan Daniel Solares via Intra-coronary. 11:14:41 100 mcg NTG (IC) given in lab by Juan Daniel Solares via Intra-coronary. 11:15:04 The RCA was injected and visualized at various angles. OMNIPAQUE, 350 MG, 150ML 150ML used . 11:15:12 Catheter was removed 09/05/2016 11:33:03 AM Financial #: [id number] Patient Name: TAMIKO POND Study #: [id number] Initial MD: Juan Daniel Solares Date of : 1950 Study Date: 09/05/2016 A JL 4.0 INFINITI CATHETER FR 5 was advanced over a wire. OMNIPAQUE, 350 MG, 150ML 150ML was us ed for 11:15:13 injections. 11:15:25 HR=93 bpm, LXZK=327/90 mmhg, SpO2=97.0 %, Resp=27 B/min, Pain=0, Harjeet=10, Gordillo=2 11:16:54 The LCA was injected and visualized at various angles. OMNIPAQUE, 350 MG, 150ML 150ML used . 11:17:41 Catheter was removed 11:20:28 HR=88 bpm, QQUA=208/92 mmhg, SpO2=96.0 %, Resp=24 B/min, Pain=0, Harjeet=10, Gordillo=2 11:20:45 50 mcg FENTANYL given in lab by Oneal Pino RN in Left Antecubital via Peripheral IV. 11:22:02 PERCLOSE, PRO GLIDE CLOSER DEVICE FR 6 placement in the Fem Art (right) 11:22:33 Case End 11:23:50 Sterile dressing applied to site Assessment: Final Case, HR=89 BPM, Rhythm=Sinus, OAZP=955/92 mmhg, Chest Pain=0, Edema=None, Color=Normal, Skin = Warm, Dry Right Pulses: Randal Ped=1, Femoral=2 11:23:58 Left Pulses: Randal Ped=1, Femoral=2 Neurological: State=Alert, Ox3, FINNEGAN Respiration: Resp=24 B/min, SpO2=96 %, O2=2 lpm 11:25:31 HR=83 bpm, THBG=139/89 mmhg, SpO2=96.0 %, Resp=23 B/min, Pain=0, Harjeet=10, Gordillo=2 11:26:58 No case complications noted. 11:27:07 Cine recording checked. 11:27:22 Bedside Report will be given. 11:27:27 A Left Heart Cath was performed. 11:28:35 Patient moved to stretcher Recorded Pressures: Condition 1 Time Chamber Pressure Manual Override (*) 11:10:16 LV 115/13/27 s/bd/ed 11:10:41 LV 113/16/19 s/bd/ed 11:10:41 Ao 127/80/101 s/d/m 11:12:47 Ao 125/81/100 s/d/m End Study - Contrast Media Used In Study Contrast Total Opened (mL) Total Used (mL) Total Wasted (mL) Omnipaque 150 40 110 End Study - Maximum Contrast Load Max Contrast Load (mL) 460.0 09/05/2016 11:33:03 AM Financial #: [id number] Patient Name: TAMIKO POND Study #: [id number] Initial MD: Juan Daniel Solares Date of : 1950 Study Date: 09/05/2016 End Study - Radiation Exposure Fluoro Time (minutes) 4.7 End Study - Patient Disposition Complications Transferred To Interventional Outcome No Telemetry Bed No attempt made 09/05/2016 11:33:03 AM Financial #: [id number]
[2016-09-05] MEDS ORDERED: ATROPINE SULFATE 1 MG/ML VIAL IV PRN (11:45)
[2016-09-05] MEDS ORDERED: ONDANSETRON HCL 4 MG/2 ML VIAL IV PRN (11:45)
--- NOTE | 2016-09-05 11:58 | MA ---
cc: CLAUDETTEOFELIA DATE: 09/05/2016 DATE OF : 1950 PROCEDURE PERFORMED 1. Left heart catheterization. 2. Selective right and left coronary angiography. 3. Left ventriculogram. 4. Selective right common femoral artery angiography. INDICATION [id number] AR. PROCEDURE DESCRIPTION Consent was signed. The patient was brought into the cardiac hoisting laborer in a fasting state. The right groin was prepped and draped in a sterile fashion. Using 1% lidocaine for local anesthesia and a micropuncture kit, a 6-Turkmen sheath was inserted into the right common femoral artery. Right common femoral artery angiography was performed to confirm position of the sheath. Then selective right and left coronary angiography was performed with JR4 and JL4 diagnostic catheters. This was followed by insertion of a JR4 over a wire to the left ventricle followed by pressure recordings, ventriculogram and pullback. Angiography was done in multiple views. All catheters were exchanged over a wire. The patient tolerated the procedure well without complication. Estimated blood loss less than 30 cc. Total contrast used 75 cc. The right groin access site was closed with a Perclose device. RESULTS LEFT VENTRICLE The left ventricular pressure was 113/16 with an LVEDP of 19. The aortic pressure was 125/81 with a mean of 100. The left ventriculogram revealed global hypokinesis with estimated ejection fraction of around 40%. There was no gradient upon pullback from the left ventricle to the aorta. ANGIOGRAPHY 1. The right coronary artery is a dominant vessel. It has a 90% lesion ostially which is also calcified. The rest of the vessel has irregularities throughout. The PDA is patent with AJ-III flow and nonobstructive CAD. There is a PLB branch which has a long 90% blockage. 2. The left main is calcified and has a 40% lesion in its midsegment. 3. The LAD is a transapical vessel and is significantly diffusely diseased throughout. It has muscle bridging in the apical region. The proximal LAD has an 80% lesion before S1. Then after S1 there is a significant 90% lesion and subsequent 95% lesion. The diagonals are small and patent and diffusely diseased. 4. The left circumflex artery has a proximal 99% blockage. The vessel is diffusely diseased throughout. It is giving off a high OM which is tortuous, however, patent with nonobstructive coronary artery disease. CONCLUSIONS 1. Severe three-vessel coronary artery disease. 2. LV systolic dysfunction. 3. Elevated LVEDP. RECOMMENDATIONS The patient will be consulted to CT surgery for CABG. In the meantime he will go to the [facility] for post-cath care and aggressive medical management for non- STEMI. The heparin drip, aspirin, beta blockers, statins and ACEi. Case discussed with Dr. Addison (CT surgery). MD ERYN Horan/BT /11:33 AM /11:52 AM [email or web address]
--- NOTE | 2016-09-05 12:58 | RADRPT ---
EXAM DATE/TIME: 09/05/2016 12:23 [facility] COMPARISON: No previous studies available for comparison. INDICATIONS : Syncope. MEDICAL HISTORY : Syncope. SURGICAL HISTORY : Jaw surgery. ENCOUNTER: Initial ACUITY: 1 day PAIN SCORE: 03/27 LOCATION: Bilateral neck PEAK SYSTOLIC VELOCITIES (cm/sec): ICA/CCA RATIO: Right: 1.1 Left: 1.0 ICA: Right: 81 Left: 79 CCA: Right: 76 Left: 79 ECA: Right: 80 Left: 77 VERTEBRAL: Right: 47 antegrade Left: 49 antegrade Elevated flow velocities and ICA/CCA ratios have been found to correlate with increased degrees of vessel stenosis, calculated as percentage of diameter relative to a normal segment of distal ICA/CCA FINDINGS: RIGHT CAROTID: No significant stenosis is visualized. The waveforms are within normal limits. LEFT CAROTID: No significant stenosis is visualized. The waveforms are within normal limits. VERTEBRAL ARTERIES: Antegrade flow is seen in both vertebral arteries. MISCELLANEOUS: None. CONCLUSION: 1. No significant flow-limiting carotid artery stenosis. 2. Antegrade vertebral artery flow bilaterally. Ermias Schwartz MD on September 05, 2016 at 12:53 Board Certified Radiologist. This report was verified electronically.
[2016-09-05] MEDS ORDERED: PAPAVERINE INJ 60 MG, NITROGLYCERIN INJ 100 MCG, DILTIAZEM INJ 100 MG in SODIUM CHLORID... IRRIGATION SCH (16:30)
[2016-09-05] MEDS ORDERED: CEFAZOLIN INJ 500 MG in SODIUM CHLORIDE 0.9% IRR BTL 500 ML IRRIGATION SCH (16:30)
[2016-09-05] MEDS ORDERED: METOPROLOL TARTRATE 25 MG TAB PO SCH (16:30)
[2016-09-05] MEDS ORDERED: CHLORHEXIDINE GLUCONATE 4% SOLN 120 ML BTL TOPICAL SCH (16:30)
[2016-09-05] MEDS ORDERED: ceFAZolin 2 GM PREMIX 50 ML IV SCH (16:30)
[2016-09-05] MEDS ORDERED: INSULIN REGULAR (IV INFUSION) 100 UNITS in SODIUM CHLORIDE 0.9% INJ 100 ML IV SCH (16:30)
[2016-09-05] MEDS ORDERED: SODIUM CHLORIDE 0.9% FLUSH 10 ML FLUSH IV FLUSH PRN (16:30)
--- NOTE | 2016-09-05 16:37 | PD.CAR.PN ---
CVT Progress Note Subjective/Hospital Course: pt seen and evaluated / full consult dictated sts data discussed with pt RISK SCORES About the STS Risk Calculator Procedure: CAB Only Risk of Mortality: 0.838% Morbidity or Mortality: 11.85% Long Length of Stay: 4.144% Short Length of Stay: 49.712% Permanent Stroke: 0.708% Prolonged Ventilation: 8.218% DSW Infection: 0.469% Renal Failure: 2.17% Reoperation: 4.496% Objective: Vital Signs Date Time Temp Pulse Resp B/P Pulse Ox O2 Delivery O2 Flow Rate FiO2 09/05/16 13:00 78 18 112/58 95 09/05/16 12:30 72 18 116/67 94 09/05/16 12:15 114/71 09/05/16 12:00 97.8 73 18 123/60 94 09/05/16 12:00 123/60 09/05/16 11:45 72 18 135/76 94 09/05/16 11:37 97.8 80 18 130/73 94 09/05/16 08:00 98.1 74 20 120/77 97 09/05/16 06:00 62 09/05/16 05:00 64 09/05/16 04:00 98.4 66 18 115/67 95 09/05/16 04:00 66 09/05/16 03:00 63 09/05/16 02:00 74 09/05/16 01:00 68 09/05/16 00:00 76 09/04/16 22:30 73 09/04/16 22:16 98.3 73 18 118/69 95 09/04/16 17:44 82 16 142/92 95 Room Air 09/04/16 16:37 97.8 84 16 135/82 97 Labs: Laboratory Tests Test 09/05/16 09/05/16 05:00 09:26 White Blood Count 7.5 TH/MM3 (4.0-11.0) Red Blood Count 4.01 MIL/MM3 (4.50-5.90) Hemoglobin 12.2 GM/DL (13.0-17.0) Hematocrit 34.8 % (39.0-51.0) Mean Corpuscular Volume 86.8 FL (80.0-100.0) Mean Corpuscular Hemoglobin 30.3 PG (27.0-34.0) Mean Corpuscular Hemoglobin 34.9 % Concent (32.0-36.0) Red Cell Distribution Width 13.2 % (11.6-17.2) Platelet Count 231 TH/MM3 (150-450) Mean Platelet Volume 8.5 FL (7.0-11.0) Neutrophils (%) (Auto) 58.9 % (16.0-70.0) Lymphocytes (%) (Auto) 28.2 % (9.0-44.0) Monocytes (%) (Auto) 9.7 % (0.0-8.0) Eosinophils (%) (Auto) 2.6 % (0.0-4.0) Basophils (%) (Auto) 0.6 % (0.0-2.0) Neutrophils # (Auto) 4.4 TH/MM3 (1.8-7.7) Lymphocytes # (Auto) 2.1 TH/MM3 (1.0-4.8) Monocytes # (Auto) 0.7 TH/MM3 (0-0.9) Eosinophils # (Auto) 0.2 TH/MM3 (0-0.4) Basophils # (Auto) 0.0 TH/MM3 (0-0.2) CBC Comment DIFF FINAL Differential Comment Sodium Level 139 MEQ/L (136-145) Potassium Level 3.8 MEQ/L (3.5-5.1) Chloride Level 106 MEQ/L (98-107) Carbon Dioxide Level 23.2 MEQ/L (21.0-32.0) Anion Gap 10 MEQ/L (5-15) Blood Urea Nitrogen 20 MG/DL (7-18) Creatinine 1.04 MG/DL (0.60-1.30) Estimat Glomerular Filtration 72 ML/MIN (>89) Rate Random Glucose 94 MG/DL (74-106) Calcium Level 8.1 MG/DL (8.5-10.1) Total Creatine Kinase 257 U/L (39-308) Troponin I 9.07 NG/ML (0.02-0.05) Triglycerides Level 78 MG/DL (42-150) Cholesterol Level 143 MG/DL (120-200) LDL Cholesterol 88 MG/DL (0-99) HDL Cholesterol 39.2 MG/DL (40.0-60.0) Cholesterol/HDL Ratio 3.64 RATIO Activated Partial 37.4 SEC Thromboplast Time (24.3-30.1) Result Diagram: 09/05/16 0500 09/05/16 0500 Michell Zafar Sep 05, 2016 16:37
--- NOTE | 2016-09-05 19:39 | RADRPT ---
EXAM DATE/TIME: 09/05/2016 18:12 [facility] COMPARISON: No previous studies available for comparison. INDICATIONS : Preop cardiac surgery. MEDICAL HISTORY : Hypertension. Shortness of breath. Chest pain. Anticoagulant therapy, Aspirin. SURGICAL HISTORY : Jaw surgery. Cardiac cath. Colonoscopy. ENCOUNTER: Initial ACUITY: 1 day PAIN SCORE: 0/10 LOCATION: Bilateral leg. TECHNIQUE: Venous ultrasound of the left and right leg was performed from the inguinal ligament to the proximal calf. Real-time, color Doppler and spectral tracing, compression and augmentation techniques were us ed. FINDINGS: RIGHT LEG: There is normal compressibility of the deep venous system from the inguinal region to the proximal ca lf. No echogenic clot is seen in the lumen of the common femoral, femoral, popliteal, and posterior tibial veins. There is a normal response of the venous system to proximal and distal augmentation an d respiration. LEFT LEG: There is normal compressibility of the deep venous system from the inguinal region to the proximal ca lf. No echogenic clot is seen in the lumen of the common femoral, femoral, popliteal, and posterior tibial veins. There is a normal response of the venous system to proximal and distal augmentation an d respiration. CONCLUSION: No DVT is identified within either lower extremity. Scott Smith MD on September 05, 2016 at 19:37 Board Certified Radiologist. This report was verified electronically.
--- NOTE | 2016-09-05 19:40 | RADRPT ---
EXAM DATE/TIME: 09/05/2016 18:20 [facility] COMPARISON: No previous studies available for comparison. INDICATIONS : Preop cardiac surgery. MEDICAL HISTORY : Hypertension. Shortness of breath. Chest pain. Anticoagulant therapy, Aspirin. SURGICAL HISTORY : Jaw surgery. Cardiac cath. Colonoscopy. ENCOUNTER: Initial ACUITY: 1 day PAIN SCORE: 0/10 LOCATION: Bilateral leg. GREATER SAPHENOUS VEIN THIGH: PROXIMAL: Right 3 mm Left 4 mm MID: Right 2 mm Left 2 mm DISTAL: Right 1 mm Left 2 mm CALF: PROXIMAL: Right 2 mm Left 1 mm MID: Right 1 mm Left 1 mm DISTAL: Right 1 mm Left 1 mm FINDINGS: The venous system of the lower extremities are patent by color Doppler imaging. Measurements of the leg veins (in mm) are listed above. CONCLUSION: Venous mapping performed with measurements given above. Scott Smith MD on September 05, 2016 at 19:37 Board Certified Radiologist. This report was verified electronically.
[2016-09-06] VITALS (21 sets, daily range): BP systolic 108–132; BP diastolic 59–82; PULSE 5–77; RESP 16–19; TEMP 97.6–98.4; O2SAT 93–98
[2016-09-06] MEDS: NITROGLYCERIN 2% OINT 1 GM PACKET TOPICAL SCH ×5 (00:30→23:21)
--- NOTE | 2016-09-06 07:06 | MB ---
cc: NETTIE BALL DATE OF CONSULTATION: 09/05/2016 HISTORY OF PRESENT ILLNESS A 66-year-old patient, date of [birth year], that is visiting from the [place], [place] area in his RV but he is staying on his son's property. Normally walks on a daily basis. Over the past few weeks has been complaining of some shortness of breath, some nausea with exertion. He was out waxing his car on Saturday, felt like he got overheated and went in to lay down, apparently then vomited and he says continued to have some shortness of breath and noticed fatigue over the past few weeks. Upon admission initial troponin was 7.81, went up to 10, down to 9.07. Initial EKG reviewed, was sinus rhythm with no acute ST changes. He underwent cardiac cath by Dr. Rain. He was ruled in for a non-STEMI. EF of 40%. RCA had a 90% lesion ostially. The PDA was patent with AJ-III flow. Posterolateral branch 90% blockage. Left main a 40% lesion. The LAD had an 80% lesion in the proximal area. The left circ had a 99% blockage. Three-vessel disease with LV systolic dysfunction. Elevated LVEDP of 19. PAST MEDICAL HISTORY Significant for hypertension. PAST SURGICAL HISTORY 1. Colonoscopy. 2. Polypectomy. 3. Repair of jaw fracture. ALLERGIES NO KNOWN ALLERGIES. HOME MEDICATIONS 1. Aspirin. 2. Losartan. FAMILY HISTORY Father secondary to esophageal cancer. Mother secondary to a CVA. SOCIAL HISTORY The patient , lives with his significant other, has two kids grown. Smoked from age [age]. Moderate ETOH, not on a daily basis. REVIEW OF SYSTEMS As above in the HPI, other 12 systems unremarkable. PHYSICAL EXAMINATION VITAL SIGNS: 112/60, heart rate of 78, afebrile. GENERAL: The patient is awake, alert, in no acute distress. HEAD, EYES, EARS, NOSE AND THROAT: Head is normocephalic, atraumatic. Pupils equal and reactive. Oral mucosa pink, moist. NECK: Supple. No JVD. HEART: Heart sounds S1 and S2. Regular rate and rhythm. No rubs, murmurs or gallops. LUNGS: Diminished in the bases, otherwise clear to auscultation. No wheezes, rales or rhonchi. ABDOMEN: Abdomen is soft, nontender. No masses or organomegaly. EXTREMITIES: No cyanosis, clubbing or edema. LABORATORY DATA Hemoglobin 12, hematocrit of 35, white cell count of 7.5, platelet count of 231. Sodium 139, potassium 3.8, BUN of 20, creatinine 1.04, troponin elevated as above. His triglycerides 78, cholesterol 143, LDL 88, HDL of 39. Carotid ultrasound is unremarkable. IMPRESSION This is a very pleasant 66-year-old male visiting from the [facility], [place] to the [place] in [place] area admitted with a non-STEMI and elevated troponins. Underwent cardiac cath with multivessel disease, EF of 40%. PLAN Plan at this time will be to evaluate for cardiovascular surgery. Cardiac films have been reviewed by Dr. Nettie Ball. The plan will be for Saturday the . Procedures, alternatives and risks will be discussed with the patient, also STS data. In the meantime, we will also check a 2D echo since his EF is only 40% for further evaluation. DICTATED BY: Nettie Ball MD Nettie Ball MD CHM/BJF /4:51 PM /7:08 AM
[2016-09-06] MEDS: amLODIPine BESYLATE 5 MG TAB PO SCH (08:14)
[2016-09-06] MEDS: ASPIRIN EC 81 MG TABEC PO SCH (08:14)
[2016-09-06] MEDS: SODIUM CHLORIDE 0.9% FLUSH 10 ML FLUSH IV FLUSH SCH ×4 (08:15→21:00)
--- NOTE | 2016-09-06 10:50 | RSPPFT ---
DATE OF PROCEDURE: 09/06/16 COMMENTS: Spirometry with FVC of 2.5 at 51% of predicted, FEV1 of 1.8 at 51%, FEV1/FVC ratio is normal. Flow is decreased at FEF 25-75. Flow volume loop indicates terminal airways obstruction. IMPRESSION: 1. Mild small airways obstructive lung disease. 2. Underlying restrictive disease cannot be ruled out from this study.
--- NOTE | 2016-09-06 11:16 | ECHRPT ---
Indication: s/p NSTEMI, LV dysfunction CONCLUSIONS Upper normal left ventricular size. Ejection fraction 50-55%. There is trace tricuspid valve regurgitation. The estimated pulmonary arterial pressure is 35 mmHg. BP: 135 / 75 HR: 80 Rhythm: Sinus MEASUREMENTS (Male / Female) Normal Values Technical Quality:Fair 2D ECHO LV Diastolic Diameter PLAX 5.6 cm 4.2 - 5.9 / 3.9 - 5.3 cm LV Systolic Diameter PLAX 4.4 cm IVS Diastolic Thickness 1.1 cm 0.6 - 1.0 / 0.6 - 0.9 cm LVPW Diastolic Thickness 1.1 cm 0.6 - 1.0 / 0.6 - 0.9 cm LV Relative Wall Thickness 0.4 RV Internal Dim ED PLAX 2.2 cm LVOT Diameter 2.2 cm M-MODE Aortic Root Diameter MM 3.3 cm LA Systolic Diameter MM 3.3 cm LA Ao Ratio MM 1.0 AV Cusp Separation MM 2.0 cm DOPPLER AV Peak Velocity 168.5 cm/s AV Peak Gradient 11.4 mmHg AV Mean Gradient 7.0 mmHg AV Velocity Time Integral 31.3 cm LVOT Peak Velocity 98.2 cm/s LVOT Peak Gradient 3.9 mmHg AV Area Cont Eq pk 2.2 cm MR Peak Velocity 398.0 cm/s MR Peak Gradient 63.4 mmHg Mitral E Point Velocity 113.0 cm/s Mitral A Point Velocity 69.6 cm/s Mitral E to A Ratio 1.6 TR Peak Velocity 248.0 cm/s TR Peak Gradient 24.6 mmHg PV Peak Velocity 132.0 cm/s PV Peak Gradient 7.0 mmHg FINDINGS MITRAL VALVE Structurally normal mitral valve. Trace mitral valve regurgitation. TRICUSPID VALVE Structurally normal tricuspid valve. There is trace tricuspid valve regurgitation. The estimated pulmonary arterial pressure is 35 mmHg. Irving Sandra MD (Electronically Signed) Final Date:06 September 2016 11:15
--- NOTE | 2016-09-06 12:15 | HHI.PR ---
Subjective Remarks This is a pleasant 66 y/o Male with Hypertension, Then last Saturday patient was out in the heat waxing a car and reports he got, "over heated." Patient was laying down trying to cool off then vomited and passed out on . Since that time he has continued to have SOB and noticed that he fatigues more easily over the past few weeks. SOB worse with exertion better with rest. complaint of Chest pain and his Troponin 7.81 He has Hypertension. Status post Cardiac Cath with multivessel disease status post Cardiovascular doctor of dental surgery consult for CABG next week. 09/06: seen in his bedroom, eating, no complaint, no nausea, vomit or diarrhea probable CABG for tomorrow. Objective Vital Signs Date Time Temp Pulse Resp B/P Pulse Ox O2 Delivery O2 Flow Rate FiO2 09/06/16 10:05 70 09/06/16 09:45 72 09/06/16 08:15 68 09/06/16 07:00 64 09/06/16 07:00 97.6 67 19 108/67 95 09/06/16 06:00 55 09/06/16 04:00 58 09/06/16 04:00 98.0 66 19 124/71 93 09/06/16 02:00 64 09/06/16 00:00 98.0 65 18 125/70 95 09/06/16 00:00 66 09/05/16 22:00 64 09/05/16 20:00 98.8 71 18 126/80 95 09/05/16 20:00 64 09/05/16 20:00 98.8 71 18 126/80 95 09/05/16 18:00 66 09/05/16 17:00 60 09/05/16 16:00 98.3 68 18 125/55 95 09/05/16 16:00 64 09/05/16 15:00 70 09/05/16 14:00 64 09/05/16 13:00 72 09/05/16 13:00 78 18 112/58 95 09/05/16 12:30 72 18 116/67 94 09/05/16 12:15 114/71 I/O 09/05/16 09/05/16 09/05/16 09/06/16 09/06/16 09/06/16 06:59 14:59 22:59 06:59 14:59 22:59 Intake Total 600 ml 520 ml Output Total 600 ml Balance -600 ml 600 ml 520 ml Intake Oral 600 ml 520 ml Output Urine Total 600 ml # Voids 4 4 Result Diagram: 09/05/16 0500 09/05/16 0500 Imaging Last Impressions Lower Extremity Ultrasound 09/05/16 0000 Signed Impressions: Service Date/Time: Monday, September 05, 2016 18:20 - CONCLUSION: Venous mapping performed with measurements given above. Scott Smith MD Carotid Artery Ultrasound 09/05/16 0000 Signed Impressions: Service Date/Time: Monday, September 05, 2016 12:23 - CONCLUSION: 1. No significant flow-limiting carotid artery stenosis. 2. Antegrade vertebral artery flow bilaterally. Ermias Schwartz MD Chest X-Ray 09/04/16 1741 Signed Impressions: Service Date/Time: Sunday, September 04, 2016 17:52 - CONCLUSION: 1. Patchy basilar airspace disease with small effusions. Differential diagnosis includes pulmonary edema and bronchopneumonia. Marko Rain MD Procedures Cardiac Cath with multivessel disease Other Results Laboratory Tests Test 09/04/16 09/05/16 09/05/16 18:05 05:00 09:26 Prothrombin Time 10.2 SEC Prothromb Time International 0.9 RATIO Ratio Magnesium Level 2.1 MG/DL Creatine Kinase MB 30.5 NG/ML Creatine Kinase MB % 9.6 % B-Type Natriuretic Peptide 389 PG/ML White Blood Count 7.5 TH/MM3 Red Blood Count 4.01 MIL/MM3 Hemoglobin 12.2 GM/DL Hematocrit 34.8 % Mean Corpuscular Volume 86.8 FL Mean Corpuscular Hemoglobin 30.3 PG Mean Corpuscular Hemoglobin 34.9 % Concent Red Cell Distribution Width 13.2 % Platelet Count 231 TH/MM3 Mean Platelet Volume 8.5 FL Neutrophils (%) (Auto) 58.9 % Lymphocytes (%) (Auto) 28.2 % Monocytes (%) (Auto) 9.7 % Eosinophils (%) (Auto) 2.6 % Basophils (%) (Auto) 0.6 % Neutrophils # (Auto) 4.4 TH/MM3 Lymphocytes # (Auto) 2.1 TH/MM3 Monocytes # (Auto) 0.7 TH/MM3 Eosinophils # (Auto) 0.2 TH/MM3 Basophils # (Auto) 0.0 TH/MM3 CBC Comment DIFF FINAL Differential Comment Sodium Level 139 MEQ/L Potassium Level 3.8 MEQ/L Chloride Level 106 MEQ/L Carbon Dioxide Level 23.2 MEQ/L Anion Gap 10 MEQ/L Blood Urea Nitrogen 20 MG/DL Creatinine 1.04 MG/DL Estimat Glomerular Filtration 72 ML/MIN Rate Random Glucose 94 MG/DL Calcium Level 8.1 MG/DL Total Creatine Kinase 257 U/L Troponin I 9.07 NG/ML Triglycerides Level 78 MG/DL Cholesterol Level 143 MG/DL LDL Cholesterol 88 MG/DL HDL Cholesterol 39.2 MG/DL Cholesterol/HDL Ratio 3.64 RATIO Activated Partial 37.4 SEC Thromboplast Time Objective Remarks GENERAL: This is a well-nourished, well-developed patient, in no apparent distress. SKIN: No rashes, ecchymoses or lesions. Cool and dry. HEAD: Atraumatic. Normocephalic. No temporal or scalp tenderness. EYES: Extraocular motions intact. No scleral icterus. No injection or drainage. CARDIOVASCULAR: Regular rate and rhythm without murmurs, gallops, or rubs. RESPIRATORY: Clear to auscultation. Breath sounds equal bilaterally. No wheezes , rales, or rhonchi. GASTROINTESTINAL: Abdomen soft, non-tender, nondistended. No hepato-splenomegaly , or palpable masses. No guarding. MUSCULOSKELETAL: Extremities without clubbing, cyanosis, or edema. No joint tenderness, effusion, or edema noted. No calf tenderness. Negative Homans sign bilaterally. NEUROLOGICAL: Awake and alert. No focal deficits appreciated. Motor and sensory grossly within normal limits. Five out of 5 muscle strength in all muscle groups. Normal speech. Medications and IVs Current Medications Medications (Trade) Dose Ordered Sig/Luz Marina Route Start Time Stop Time Status Last Admin (Heparin Inj) 5,000 units UNSCH PRN IV 09/05/16 01:00 Heparin Sodium (Porcine) 2500 units 2,500 units UNSCH PRN IV 09/05/16 01:00 (Heparin-D5W Inj) 250 ml @ 0 mls/hr TITRATE IV 09/04/16 19:00 09/04/16 19:07 (NS Flush) 2 ml UNSCH PRN IV FLUSH 09/04/16 20:00 (NS Flush) 2 ml BID IV FLUSH 09/04/16 21:00 09/06/16 08:15 (Narcan Inj) 0.4 mg UNSCH PRN IV 09/04/16 20:00 (Ecotrin Ec) 81 mg DAILY PO 09/05/16 09:00 09/06/16 08:14 (Nitroglycerin 2% Oint) 1 inch Q6HR TOPICAL 09/05/16 00:45 09/06/16 11:40 (Atropine Inj) 0.5 mg UNSCH PRN IV 09/05/16 11:45 (Zofran Inj) 4 mg Q4H PRN IV 09/05/16 11:45 (NS Flush) 2 ml BID IV FLUSH 09/05/16 21:00 09/06/16 08:15 (NS Flush) 2 ml UNSCH PRN IV FLUSH 09/05/16 16:30 (Norvasc) 5 mg DAILY PO 09/06/16 09:00 09/06/16 08:14 A/P Assessment and Plan 1. NSTEMI 66-year-old male with hypertension. Presents to the emergency department due to worsening shortness of breath with exertion and troponin of 7.81 Initial troponin elevated 7.81 Initial EKG reviewed and reveals sinus rhythm rate 77 bpm with no acute ST changes noted Continuous shelter monitor Status post Cardiac Catheterization with Multivessel disease as per triage specialist for CABG for tomorrow. Heparin drip, nitro paste aspirin daily Chest x-ray reviewed and reveals patchy bilateral air space disease with small effusions. Differential diagnosis includes pulmonary edema and bronchial pneumonia HTN- chronic Controlled. continue home medication losartan 100mg daily DVT prophylaxis patient on heparin drip Discussed with Patient his and nurse miss Zendejas, all questions answered to the best of my abilities. Discharge Planning after Surgery will go to Intensive Care Unit. Tylor Kenney MD Sep 06, 2016 12:15
[2016-09-06 13:55] LABS: BLOOD, URINE NEG (NEG); GLUCOSE,URINE NEG (NEG); KETONE, URINE NEG (NEG); NITRITE,URINE NEG (NEG); URINE COLOR YELLOW (YELLW/STRAW)
[2016-09-06 14:01] LABS: COMMENT (UR) CULT NOT INDICATED; CULTURE IF INDICATED CULT NOT INDICATED
--- NOTE | 2016-09-06 14:20 | PD.CARD.PN ---
Subjective Subjective Remarks no complaints no overnight events Objective Medications Current Medications Medications (Trade) Dose Ordered Sig/Luz Marina Route Start Time Stop Time Status Last Admin (Heparin Inj) 5,000 units UNSCH PRN IV 09/05/16 01:00 Heparin Sodium (Porcine) 2500 units 2,500 units UNSCH PRN IV 09/05/16 01:00 (Heparin-D5W Inj) 250 ml @ 0 mls/hr TITRATE IV 09/04/16 19:00 09/04/16 19:07 (NS Flush) 2 ml UNSCH PRN IV FLUSH 09/04/16 20:00 (NS Flush) 2 ml BID IV FLUSH 09/04/16 21:00 09/06/16 08:15 (Narcan Inj) 0.4 mg UNSCH PRN IV 09/04/16 20:00 (Ecotrin Ec) 81 mg DAILY PO 09/05/16 09:00 09/06/16 08:14 (Nitroglycerin 2% Oint) 1 inch Q6HR TOPICAL 09/05/16 00:45 09/06/16 11:40 (Atropine Inj) 0.5 mg UNSCH PRN IV 09/05/16 11:45 (Zofran Inj) 4 mg Q4H PRN IV 09/05/16 11:45 (NS Flush) 2 ml BID IV FLUSH 09/05/16 21:00 09/06/16 08:15 (NS Flush) 2 ml UNSCH PRN IV FLUSH 09/05/16 16:30 (Norvasc) 5 mg DAILY PO 09/06/16 09:00 09/06/16 08:14 Vital Signs / I&O Vital Signs Date Time Temp Pulse Resp B/P Pulse Ox O2 Delivery O2 Flow Rate FiO2 09/06/16 12:27 71 09/06/16 11:00 98.0 54 19 123/59 98 09/06/16 11:00 58 09/06/16 10:05 70 09/06/16 09:45 72 09/06/16 08:15 68 09/06/16 07:00 64 09/06/16 07:00 97.6 67 19 108/67 95 09/06/16 06:00 55 09/06/16 04:00 58 09/06/16 04:00 98.0 66 19 124/71 93 09/06/16 02:00 64 09/06/16 00:00 98.0 65 18 125/70 95 09/06/16 00:00 66 09/05/16 22:00 64 09/05/16 20:00 98.8 71 18 126/80 95 09/05/16 20:00 64 09/05/16 20:00 98.8 71 18 126/80 95 09/05/16 18:00 66 09/05/16 17:00 60 09/05/16 16:00 98.3 68 18 125/55 95 09/05/16 16:00 64 09/05/16 15:00 70 I/O 09/05/16 09/05/16 09/05/16 09/06/16 09/06/16 09/06/16 06:59 14:59 22:59 06:59 14:59 22:59 Intake Total 600 ml 520 ml Output Total 600 ml Balance -600 ml 600 ml 520 ml Intake Oral 600 ml 520 ml Output Urine Total 600 ml # Voids 4 4 Physical Exam GENERAL: Well-nourished, well-developed patient. SKIN: Warm and dry. HEAD: Normocephalic. EYES: No scleral icterus. No injection or drainage. NECK: Supple, trachea midline. No JVD or lymphadenopathy. CARDIOVASCULAR: Regular rate and rhythm without murmurs, gallops, or rubs. RESPIRATORY: Breath sounds equal bilaterally. No accessory muscle use. GASTROINTESTINAL: Abdomen soft, non-tender, nondistended. EXTREMITIES: No cyanosis, or edema. NEUROLOGICAL: Awake, alert, and oriented x 3. Non-focal. Laboratory Laboratory Tests Test 09/06/16 09/06/16 10:15 13:20 Nasal Screen MRSA (PCR) MRSA NOT DETECTED Urine Color YELLOW Urine Turbidity CLEAR Urine pH 7.0 Urine Specific [place] 1.014 Urine Protein NEG mg/dL Urine Glucose (UA) NEG mg/dL Urine Ketones NEG mg/dL Urine Occult Blood NEG Urine Nitrite NEG Urine Bilirubin NEG Urine Urobilinogen LESS THAN 2.0 MG/DL Urine Leukocyte Esterase NEG Urine RBC LESS THAN 1 /hpf Urine WBC LESS THAN 1 /hpf Microscopic Urinalysis Comment CULT NOT INDICATED Imaging Last Impressions Lower Extremity Ultrasound 09/05/16 0000 Signed Impressions: Service Date/Time: Monday, September 05, 2016 18:20 - CONCLUSION: Venous mapping performed with measurements given above. Scott Smith MD Carotid Artery Ultrasound 09/05/16 0000 Signed Impressions: Service Date/Time: Monday, September 05, 2016 12:23 - CONCLUSION: 1. No significant flow-limiting carotid artery stenosis. 2. Antegrade vertebral artery flow bilaterally. Ermias Schwartz MD Chest X-Ray 09/04/16 1741 Signed Impressions: Service Date/Time: Sunday, September 04, 2016 17:52 - CONCLUSION: 1. Patchy basilar airspace disease with small effusions. Differential diagnosis includes pulmonary edema and bronchopneumonia. Marko Rain MD Assessment and Plan Problem List: (1) Non-ST elevation (NSTEMI) myocardial infarction Assessment and Plan: Cont medical therapy CABG on Saturday Juan Daniel Solares MD Sep 06, 2016 14:20
[2016-09-06 14:49] LABS: APTT (PATIENT) 29.6 SEC (24.3-30.1)
[2016-09-06] MEDS: HEPARIN-D5W INJ 250 ML IV SCH (22:20)
[2016-09-07] VITALS (25 sets, daily range): BP systolic 119–141; BP diastolic 71–82; PULSE 50–78; RESP 16–20; TEMP 98–98.6; O2SAT 95–97
[2016-09-07 00:23] LABS: APTT (PATIENT) 34.3 SEC (24.3-30.1)
[2016-09-07 04:42] LABS: HEMATOCRIT 37.5 % (39.0-51.0); MEAN CELL VOLUME 86.7 FL (80.0-100.0); MEAN CORPUSCULAR HEMOGLOBIN 29.9 PG (27.0-34.0); MEAN CORPUSCULAR HGB CONC 34.5 % (32.0-36.0); PLATELET COUNT 247 TH/MM3 (150-450); RED BLOOD COUNT 4.33 MIL/MM3 (4.50-5.90); RED CELL DISTRIBUTION WIDTH 12.9 % (11.6-17.2); REVIEW FLAG FINAL; WHITE BLOOD COUNT 7.9 TH/MM3 (4.0-11.0)
[2016-09-07] MEDS: NITROGLYCERIN 2% OINT 1 GM PACKET TOPICAL SCH ×4 (06:39→23:38)
[2016-09-07] MEDS: ASPIRIN EC 81 MG TABEC PO SCH (08:07)
[2016-09-07] MEDS: amLODIPine BESYLATE 5 MG TAB PO SCH (08:07)
[2016-09-07] MEDS: SODIUM CHLORIDE 0.9% FLUSH 10 ML FLUSH IV FLUSH SCH ×4 (08:07→21:00)
[2016-09-07 11:16] LABS: APTT (PATIENT) 38.5 SEC (24.3-30.1)
--- NOTE | 2016-09-07 14:00 | HHI.PR ---
Subjective Remarks This is a pleasant 66 y/o Male with Hypertension, Then last Saturday patient was out in the heat waxing a car and reports he got, "over heated." Patient was laying down trying to cool off then vomited and passed out on . Since that time he has continued to have SOB and noticed that he fatigues more easily over the past few weeks. SOB worse with exertion better with rest. complaint of Chest pain and his Troponin 7.81 He has Hypertension. Status post Cardiac Cath with multivessel disease status post Cardiovascular manager surgery consult for CABG next week. 09/07: Stable in his bedroom in the presence of his , No nausea, vomit or diarrhea, no chest pain. Objective Vital Signs Date Time Temp Pulse Resp B/P Pulse Ox O2 Delivery O2 Flow Rate FiO2 09/07/16 12:06 65 09/07/16 11:43 98.0 78 18 135/74 96 09/07/16 11:06 63 09/07/16 10:00 65 09/07/16 09:00 60 09/07/16 08:00 58 09/07/16 07:29 50 09/07/16 07:00 98.3 58 18 119/75 97 09/07/16 06:22 98.6 58 16 132/82 97 09/07/16 06:00 58 09/07/16 05:00 52 09/07/16 04:00 52 09/07/16 03:00 54 09/07/16 02:00 56 09/07/16 01:00 58 09/07/16 00:00 64 09/06/16 23:46 98.4 63 16 122/82 95 09/06/16 23:00 60 09/06/16 22:38 98.4 61 16 132/79 95 09/06/16 22:00 56 09/06/16 21:00 56 09/06/16 20:00 66 09/06/16 19:00 56 09/06/16 18:09 62 09/06/16 17:00 61 09/06/16 16:20 77 09/06/16 15:54 61 09/06/16 15:54 98.4 62 19 119/62 98 I/O 09/06/16 09/06/16 09/06/16 09/07/16 09/07/16 09/07/16 07:00 15:00 23:00 07:00 15:00 23:00 Intake Total 520 ml 740 ml 240 ml Output Total 925 ml 1000 ml Balance 520 ml -185 ml -760 ml Intake Oral 520 ml 700 ml 240 ml IV Total 40 ml 0 ml Output Urine Total 925 ml 1000 ml # Voids 4 # Bowel Movements 0 0 Result Diagram: 09/07/16 0404 09/05/16 0500 Imaging Last Impressions Lower Extremity Ultrasound 09/05/16 0000 Signed Impressions: Service Date/Time: Monday, September 05, 2016 18:20 - CONCLUSION: Venous mapping performed with measurements given above. Scott Smith MD Carotid Artery Ultrasound 09/05/16 0000 Signed Impressions: Service Date/Time: Monday, September 05, 2016 12:23 - CONCLUSION: 1. No significant flow-limiting carotid artery stenosis. 2. Antegrade vertebral artery flow bilaterally. Ermias Schwartz MD Chest X-Ray 09/04/16 1741 Signed Impressions: Service Date/Time: Sunday, September 04, 2016 17:52 - CONCLUSION: 1. Patchy basilar airspace disease with small effusions. Differential diagnosis includes pulmonary edema and bronchopneumonia. Marko Rain MD Procedures Cardiac Cath with multivessel disease Other Results Laboratory Tests Test 09/04/16 09/05/16 09/06/16 09/06/16 18:05 05:00 10:15 13:20 Prothrombin Time 10.2 SEC Prothromb Time International 0.9 RATIO Ratio Magnesium Level 2.1 MG/DL Creatine Kinase MB 30.5 NG/ML Creatine Kinase MB % 9.6 % B-Type Natriuretic Peptide 389 PG/ML Neutrophils (%) (Auto) 58.9 % Lymphocytes (%) (Auto) 28.2 % Monocytes (%) (Auto) 9.7 % Eosinophils (%) (Auto) 2.6 % Basophils (%) (Auto) 0.6 % Neutrophils # (Auto) 4.4 TH/MM3 Lymphocytes # (Auto) 2.1 TH/MM3 Monocytes # (Auto) 0.7 TH/MM3 Eosinophils # (Auto) 0.2 TH/MM3 Basophils # (Auto) 0.0 TH/MM3 CBC Comment DIFF FINAL Differential Comment Sodium Level 139 MEQ/L Potassium Level 3.8 MEQ/L Chloride Level 106 MEQ/L Carbon Dioxide Level 23.2 MEQ/L Anion Gap 10 MEQ/L Blood Urea Nitrogen 20 MG/DL Creatinine 1.04 MG/DL Estimat Glomerular Filtration 72 ML/MIN Rate Random Glucose 94 MG/DL Calcium Level 8.1 MG/DL Total Creatine Kinase 257 U/L Troponin I 9.07 NG/ML Triglycerides Level 78 MG/DL Cholesterol Level 143 MG/DL LDL Cholesterol 88 MG/DL HDL Cholesterol 39.2 MG/DL Cholesterol/HDL Ratio 3.64 RATIO Nasal Screen MRSA (PCR) MRSA NOT DETECTED Urine Color YELLOW Urine Turbidity CLEAR Urine pH 7.0 Urine Specific [place] 1.014 Urine Protein NEG mg/dL Urine Glucose (UA) NEG mg/dL Urine Ketones NEG mg/dL Urine Occult Blood NEG Urine Nitrite NEG Urine Bilirubin NEG Urine Urobilinogen LESS THAN 2.0 MG/DL Urine Leukocyte Esterase NEG Urine RBC LESS THAN 1 /hpf Urine WBC LESS THAN 1 /hpf Microscopic Urinalysis Comment CULT NOT INDICATED Test 09/07/16 09/07/16 04:04 10:33 White Blood Count 7.9 TH/MM3 Red Blood Count 4.33 MIL/MM3 Hemoglobin 13.0 GM/DL Hematocrit 37.5 % Mean Corpuscular Volume 86.7 FL Mean Corpuscular Hemoglobin 29.9 PG Mean Corpuscular Hemoglobin 34.5 % Concent Red Cell Distribution Width 12.9 % Platelet Count 247 TH/MM3 Mean Platelet Volume 8.3 FL Activated Partial 38.5 SEC Thromboplast Time Objective Remarks GENERAL: This is a well-nourished, well-developed patient, in no apparent distress. SKIN: No rashes, ecchymoses or lesions. Cool and dry. HEAD: Atraumatic. Normocephalic. No temporal or scalp tenderness. EYES: Extraocular motions intact. No scleral icterus. No injection or drainage. CARDIOVASCULAR: Regular rate and rhythm without murmurs, gallops, or rubs. RESPIRATORY: Clear to auscultation. Breath sounds equal bilaterally. No wheezes , rales, or rhonchi. GASTROINTESTINAL: Abdomen soft, non-tender, nondistended. No hepato-splenomegaly , or palpable masses. No guarding. MUSCULOSKELETAL: Extremities without clubbing, cyanosis, or edema. No joint tenderness, effusion, or edema noted. No calf tenderness. Negative Homans sign bilaterally. NEUROLOGICAL: Awake and alert. No focal deficits appreciated. Motor and sensory grossly within normal limits. Five out of 5 muscle strength in all muscle groups. Normal speech. Medications and IVs Current Medications Medications (Trade) Dose Ordered Sig/Luz [place] Route Start Time Stop Time Status Last Admin (Heparin Inj) 5,000 units UNSCH PRN IV 09/05/16 01:00 Heparin Sodium (Porcine) 2500 units 2,500 units UNSCH PRN IV 09/05/16 01:00 09/07/16 02:14 (Heparin-D5W Inj) 250 ml @ 0 mls/hr TITRATE IV 09/04/16 19:00 09/06/16 22:20 (NS Flush) 2 ml UNSCH PRN IV FLUSH 09/04/16 20:00 (NS Flush) 2 ml BID IV FLUSH 09/04/16 21:00 09/07/16 08:07 (Narcan Inj) 0.4 mg UNSCH PRN IV 09/04/16 20:00 (Ecotrin Ec) 81 mg DAILY PO 09/05/16 09:00 09/07/16 08:07 (Nitroglycerin 2% Oint) 1 inch Q6HR TOPICAL 09/05/16 00:45 09/07/16 11:59 (Atropine Inj) 0.5 mg UNSCH PRN IV 09/05/16 11:45 (Zofran Inj) 4 mg Q4H PRN IV 09/05/16 11:45 (NS Flush) 2 ml BID IV FLUSH 09/05/16 21:00 09/07/16 08:08 (NS Flush) 2 ml UNSCH PRN IV FLUSH 09/05/16 16:30 (Norvasc) 5 mg DAILY PO 09/06/16 09:00 09/07/16 08:07 A/P Assessment and Plan 1. NSTEMI 66-year-old male with hypertension. Presents to the emergency department due to worsening shortness of breath with exertion and troponin of 7.81 Initial troponin elevated 7.81 Initial EKG reviewed and reveals sinus rhythm rate 77 bpm with no acute ST changes noted Continuous center lead consultant Status post Cardiac Catheterization with Multivessel disease as per disease intervention specialist for CABG Next Week. Heparin drip, nitro paste aspirin daily Chest x-ray reviewed and reveals patchy bilateral air space disease with small effusions. Differential diagnosis includes pulmonary edema and bronchial pneumonia HTN- chronic Controlled. continue home medication losartan 100mg daily DVT prophylaxis patient on heparin drip Discussed with Patient his and nurse miss Zendejas, all questions answered to the best of my abilities. Discharge Planning after Surgery will go to Intensive Care Unit. Tylor Kenney MD Sep 07, 2016 14:00
--- NOTE | 2016-09-07 15:06 | PD.CAR.PN ---
CVT Progress Note Subjective/Hospital Course: pt seen and evaluated / full consult dictated sts data discussed with pt RISK SCORES About the STS Risk Calculator Procedure: CAB Only Risk of Mortality: 0.838% Morbidity or Mortality: 11.85% Long Length of Stay: 4.144% Short Length of Stay: 49.712% Permanent Stroke: 0.708% Prolonged Ventilation: 8.218% DSW Infection: 0.469% Renal Failure: 2.17% Reoperation: 4.496% 09/07/16 No complaints today Objective: Vital Signs Date Time Temp Pulse Resp B/P Pulse Ox O2 Delivery O2 Flow Rate FiO2 09/07/16 14:40 59 09/07/16 12:06 65 09/07/16 11:43 98.0 78 18 135/74 96 09/07/16 11:06 63 09/07/16 10:00 65 09/07/16 09:00 60 09/07/16 08:00 58 09/07/16 07:29 50 09/07/16 07:00 98.3 58 18 119/75 97 09/07/16 06:22 98.6 58 16 132/82 97 09/07/16 06:00 58 09/07/16 05:00 52 09/07/16 04:00 52 09/07/16 03:00 54 09/07/16 02:00 56 09/07/16 01:00 58 09/07/16 00:00 64 09/06/16 23:46 98.4 63 16 122/82 95 09/06/16 23:00 60 09/06/16 22:38 98.4 61 16 132/79 95 09/06/16 22:00 56 09/06/16 21:00 56 09/06/16 20:00 66 09/06/16 19:00 56 09/06/16 18:09 62 09/06/16 17:00 61 09/06/16 16:20 77 09/06/16 15:54 61 09/06/16 15:54 98.4 62 19 119/62 98 Labs: Laboratory Tests Test 09/07/16 09/07/16 04:04 10:33 White Blood Count 7.9 TH/MM3 (4.0-11.0) Red Blood Count 4.33 MIL/MM3 (4.50-5.90) Hemoglobin 13.0 GM/DL (13.0-17.0) Hematocrit 37.5 % (39.0-51.0) Mean Corpuscular Volume 86.7 FL (80.0-100.0) Mean Corpuscular Hemoglobin 29.9 PG (27.0-34.0) Mean Corpuscular Hemoglobin 34.5 % Concent (32.0-36.0) Red Cell Distribution Width 12.9 % (11.6-17.2) Platelet Count 247 TH/MM3 (150-450) Mean Platelet Volume 8.3 FL (7.0-11.0) Activated Partial 38.5 SEC Thromboplast Time (24.3-30.1) Result Diagram: 09/07/16 0404 09/05/16 0500 Imaging: Last Impressions Lower Extremity Ultrasound 09/05/16 0000 Signed Impressions: Service Date/Time: Monday, September 05, 2016 18:20 - CONCLUSION: Venous mapping performed with measurements given above. Scott Smith MD Carotid Artery Ultrasound 09/05/16 0000 Signed Impressions: Service Date/Time: Monday, September 05, 2016 12:23 - CONCLUSION: 1. No significant flow-limiting carotid artery stenosis. 2. Antegrade vertebral artery flow bilaterally. Ermias Schwartz MD Chest X-Ray 09/04/16 1741 Signed Impressions: Service Date/Time: Sunday, September 04, 2016 17:52 - CONCLUSION: 1. Patchy basilar airspace disease with small effusions. Differential diagnosis includes pulmonary edema and bronchopneumonia. Marko Rain MD Cardiovascular: RRR Telemetry: NSR Pulmonary: CTA GI/: NABS, NT Plan: I reviewed the CABG procedure with him and answered his questions. Plan for CABG Saturday. (1) Non-ST elevation (NSTEMI) myocardial infarction Plan: Cont medical therapy CABG on Saturday Nettie Ball MD Sep 07, 2016 15:06
[2016-09-07] MEDS: HEPARIN-D5W INJ 250 ML IV SCH (17:30)
[2016-09-07 17:57] LABS: APTT (PATIENT) 51.4 SEC (24.3-30.1)
[2016-09-08] VITALS (26 sets, daily range): BP systolic 124–155; BP diastolic 74–86; PULSE 47–86; RESP 16–20; TEMP 98–98.7; O2SAT 93–97
[2016-09-08 02:41] LABS: APTT (PATIENT) 39.8 SEC (24.3-30.1)
[2016-09-08] MEDS: NITROGLYCERIN 2% OINT 1 GM PACKET TOPICAL SCH ×4 (06:00→23:28)
[2016-09-08] MEDS: SODIUM CHLORIDE 0.9% FLUSH 10 ML FLUSH IV FLUSH SCH ×4 (09:00→21:00)
[2016-09-08] MEDS: ASPIRIN EC 81 MG TABEC PO SCH (09:50)
[2016-09-08] MEDS: amLODIPine BESYLATE 5 MG TAB PO SCH (09:50)
--- NOTE | 2016-09-08 10:22 | PD.CARD.PN ---
Subjective Subjective Remarks no complaints no overnight events Objective Medications Current Medications Medications (Trade) Dose Ordered Sig/Luz [place] Route Start Time Stop Time Status Last Admin (Heparin Inj) 5,000 units UNSCH PRN IV 09/05/16 01:00 Heparin Sodium (Porcine) 2500 units 2,500 units UNSCH PRN IV 09/05/16 01:00 09/07/16 02:14 (Heparin-D5W Inj) 250 ml @ 0 mls/hr TITRATE IV 09/04/16 19:00 09/07/16 17:30 (NS Flush) 2 ml UNSCH PRN IV FLUSH 09/04/16 20:00 (NS Flush) 2 ml BID IV FLUSH 09/04/16 21:00 09/08/16 09:50 (Narcan Inj) 0.4 mg UNSCH PRN IV 09/04/16 20:00 (Ecotrin Ec) 81 mg DAILY PO 09/05/16 09:00 09/08/16 09:50 (Nitroglycerin 2% Oint) 1 inch Q6HR TOPICAL 09/05/16 00:45 09/07/16 23:38 (Atropine Inj) 0.5 mg UNSCH PRN IV 09/05/16 11:45 (Zofran Inj) 4 mg Q4H PRN IV 09/05/16 11:45 (NS Flush) 2 ml BID IV FLUSH 09/05/16 21:00 09/07/16 08:08 (NS Flush) 2 ml UNSCH PRN IV FLUSH 09/05/16 16:30 (Norvasc) 5 mg DAILY PO 09/06/16 09:00 09/08/16 09:50 Vital Signs / I&O Vital Signs Date Time Temp Pulse Resp B/P Pulse Ox O2 Delivery O2 Flow Rate FiO2 09/08/16 06:00 47 09/08/16 05:00 48 09/08/16 04:00 98.0 47 20 124/77 93 09/08/16 04:00 Room Air 09/08/16 04:00 47 09/08/16 03:00 48 09/08/16 02:00 50 09/08/16 01:00 54 09/08/16 00:00 98.4 71 20 155/85 93 09/08/16 00:00 71 09/07/16 23:00 62 09/07/16 22:00 60 09/07/16 21:00 61 09/07/16 20:00 Room Air 09/07/16 20:00 60 09/07/16 20:00 98.1 61 20 141/78 96 09/07/16 18:11 59 09/07/16 17:00 59 09/07/16 16:00 62 09/07/16 15:00 61 09/07/16 15:00 98.0 62 18 127/71 95 09/07/16 14:40 59 09/07/16 12:06 65 09/07/16 11:43 98.0 78 18 135/74 96 09/07/16 11:06 63 I/O 09/07/16 09/07/16 09/07/16 09/08/16 09/08/16 09/08/16 07:00 15:00 23:00 07:00 15:00 23:00 Intake Total 240 ml 738 ml 370 ml Output Total 1000 ml 780 ml 850 ml Balance -760 ml -42 ml -480 ml Intake Oral 240 ml 600 ml 240 ml IV Total 0 ml 138 ml 130 ml Output Urine Total 1000 ml 780 ml 850 ml # Bowel Movements 0 1 0 Physical Exam GENERAL: Well-nourished, well-developed patient. SKIN: Warm and dry. HEAD: Normocephalic. EYES: No scleral icterus. No injection or drainage. NECK: Supple, trachea midline. No JVD or lymphadenopathy. CARDIOVASCULAR: Regular rate and rhythm without murmurs, gallops, or rubs. RESPIRATORY: Breath sounds equal bilaterally. No accessory muscle use. GASTROINTESTINAL: Abdomen soft, non-tender, nondistended. EXTREMITIES: No cyanosis, or edema. NEUROLOGICAL: Awake, alert, and oriented x 3. Non-focal. Laboratory Laboratory Tests Test 09/07/16 09/07/16 09/08/16 10:33 17:19 01:28 Activated Partial 38.5 SEC 51.4 SEC 39.8 SEC Thromboplast Time Assessment and Plan Problem List: (1) Non-ST elevation (NSTEMI) myocardial infarction Assessment and Plan: Cont medical management CABG on Saturday Juan Daniel Solares MD Sep 08, 2016 10:22
[2016-09-08 11:09] LABS: APTT (PATIENT) 46.9 SEC (24.3-30.1)
--- NOTE | 2016-09-08 16:11 | HHI.PR ---
Subjective Remarks This is a pleasant 66 y/o Male with Hypertension, Then last Saturday patient was out in the heat waxing a car and reports he got, "over heated." Patient was laying down trying to cool off then vomited and passed out on . Since that time he has continued to have SOB and noticed that he fatigues more easily over the past few weeks. SOB worse with exertion better with rest. complaint of Chest pain and his Troponin 7.81 He has Hypertension. 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 09/08: Stable in his bedroom, no chest pain, resting comfortable, no nausea, vomit or diarrhea. Objective Vital Signs Date Time Temp Pulse Resp B/P Pulse Ox O2 Delivery O2 Flow Rate FiO2 09/08/16 14:01 69 09/08/16 13:05 85 09/08/16 12:12 60 09/08/16 11:25 98.1 66 16 126/74 95 09/08/16 11:00 60 09/08/16 10:00 86 09/08/16 09:00 68 09/08/16 08:10 98.7 62 16 129/77 97 09/08/16 08:00 54 09/08/16 07:00 95 Room Air 09/08/16 07:00 59 09/08/16 06:00 47 09/08/16 05:00 48 09/08/16 04:00 98.0 47 20 124/77 93 09/08/16 04:00 Room Air 09/08/16 04:00 47 09/08/16 03:00 48 09/08/16 02:00 50 09/08/16 01:00 54 09/08/16 00:00 98.4 71 20 155/85 93 09/08/16 00:00 71 09/07/16 23:00 62 09/07/16 22:00 60 09/07/16 21:00 61 09/07/16 20:00 Room Air 09/07/16 20:00 60 09/07/16 20:00 98.1 61 20 141/78 96 09/07/16 18:11 59 09/07/16 17:00 59 I/O 09/07/16 09/07/16 09/07/16 09/08/16 09/08/16 09/08/16 07:00 15:00 23:00 07:00 15:00 23:00 Intake Total 240 ml 738 ml 370 ml Output Total 1000 ml 780 ml 850 ml Balance -760 ml -42 ml -480 ml Intake Oral 240 ml 600 ml 240 ml IV Total 0 ml 138 ml 130 ml Output Urine Total 1000 ml 780 ml 850 ml # Bowel Movements 0 1 0 Result Diagram: 09/07/16 0404 09/05/16 0500 Imaging Last Impressions Lower Extremity Ultrasound 09/05/16 0000 Signed Impressions: Service Date/Time: Monday, September 05, 2016 18:20 - CONCLUSION: Venous mapping performed with measurements given above. Scott Smith MD Carotid Artery Ultrasound 09/05/16 0000 Signed Impressions: Service Date/Time: Monday, September 05, 2016 12:23 - CONCLUSION: 1. No significant flow-limiting carotid artery stenosis. 2. Antegrade vertebral artery flow bilaterally. Ermias Schwartz MD Chest X-Ray 09/04/16 1741 Signed Impressions: Service Date/Time: Sunday, September 04, 2016 17:52 - CONCLUSION: 1. Patchy basilar airspace disease with small effusions. Differential diagnosis includes pulmonary edema and bronchopneumonia. Marko Rain MD Procedures Cardiac Cath with multivessel disease Other Results Laboratory Tests Test 09/04/16 09/05/16 09/06/16 09/06/16 18:05 05:00 10:15 13:20 Prothrombin Time 10.2 SEC Prothromb Time International 0.9 RATIO Ratio Magnesium Level 2.1 MG/DL Creatine Kinase MB 30.5 NG/ML Creatine Kinase MB % 9.6 % B-Type Natriuretic Peptide 389 PG/ML Neutrophils (%) (Auto) 58.9 % Lymphocytes (%) (Auto) 28.2 % Monocytes (%) (Auto) 9.7 % Eosinophils (%) (Auto) 2.6 % Basophils (%) (Auto) 0.6 % Neutrophils # (Auto) 4.4 TH/MM3 Lymphocytes # (Auto) 2.1 TH/MM3 Monocytes # (Auto) 0.7 TH/MM3 Eosinophils # (Auto) 0.2 TH/MM3 Basophils # (Auto) 0.0 TH/MM3 CBC Comment DIFF FINAL Differential Comment Sodium Level 139 MEQ/L Potassium Level 3.8 MEQ/L Chloride Level 106 MEQ/L Carbon Dioxide Level 23.2 MEQ/L Anion Gap 10 MEQ/L Blood Urea Nitrogen 20 MG/DL Creatinine 1.04 MG/DL Estimat Glomerular Filtration 72 ML/MIN Rate Random Glucose 94 MG/DL Calcium Level 8.1 MG/DL Total Creatine Kinase 257 U/L Troponin I 9.07 NG/ML Triglycerides Level 78 MG/DL Cholesterol Level 143 MG/DL LDL Cholesterol 88 MG/DL HDL Cholesterol 39.2 MG/DL Cholesterol/HDL Ratio 3.64 RATIO Nasal Screen MRSA (PCR) MRSA NOT DETECTED Urine Color YELLOW Urine Turbidity CLEAR Urine pH 7.0 Urine Specific [place] 1.014 Urine Protein NEG mg/dL Urine Glucose (UA) NEG mg/dL Urine Ketones NEG mg/dL Urine Occult Blood NEG Urine Nitrite NEG Urine Bilirubin NEG Urine Urobilinogen LESS THAN 2.0 MG/DL Urine Leukocyte Esterase NEG Urine RBC LESS THAN 1 /hpf Urine WBC LESS THAN 1 /hpf Microscopic Urinalysis Comment CULT NOT INDICATED Test 09/07/16 09/08/16 04:04 09:44 White Blood Count 7.9 TH/MM3 Red Blood Count 4.33 MIL/MM3 Hemoglobin 13.0 GM/DL Hematocrit 37.5 % Mean Corpuscular Volume 86.7 FL Mean Corpuscular Hemoglobin 29.9 PG Mean Corpuscular Hemoglobin 34.5 % Concent Red Cell Distribution Width 12.9 % Platelet Count 247 TH/MM3 Mean Platelet Volume 8.3 FL Activated Partial 46.9 SEC Thromboplast Time Objective Remarks GENERAL: This is a well-nourished, well-developed patient, in no apparent distress. SKIN: No rashes, ecchymoses or lesions. Cool and dry. HEAD: Atraumatic. Normocephalic. No temporal or scalp tenderness. EYES: Extraocular motions intact. No scleral icterus. No injection or drainage. CARDIOVASCULAR: Regular rate and rhythm without murmurs, gallops, or rubs. RESPIRATORY: Clear to auscultation. Breath sounds equal bilaterally. No wheezes , rales, or rhonchi. GASTROINTESTINAL: Abdomen soft, non-tender, nondistended. No hepato-splenomegaly , or palpable masses. No guarding. MUSCULOSKELETAL: Extremities without clubbing, cyanosis, or edema. No joint tenderness, effusion, or edema noted. No calf tenderness. Negative Homans sign bilaterally. NEUROLOGICAL: Awake and alert. No focal deficits appreciated. Motor and sensory grossly within normal limits. Five out of 5 muscle strength in all muscle groups. Normal speech. Medications and IVs Current Medications Medications (Trade) Dose Ordered Sig/Luz Marina Route Start Time Stop Time Status Last Admin (Heparin Inj) 5,000 units UNSCH PRN IV 09/05/16 01:00 Heparin Sodium (Porcine) 2500 units 2,500 units UNSCH PRN IV 09/05/16 01:00 09/07/16 02:14 (Heparin-D5W Inj) 250 ml @ 0 mls/hr TITRATE IV 09/04/16 19:00 09/07/16 17:30 (NS Flush) 2 ml UNSCH PRN IV FLUSH 09/04/16 20:00 (NS Flush) 2 ml BID IV FLUSH 09/04/16 21:00 09/08/16 09:50 (Narcan Inj) 0.4 mg UNSCH PRN IV 09/04/16 20:00 (Ecotrin Ec) 81 mg DAILY PO 09/05/16 09:00 09/08/16 09:50 (Nitroglycerin 2% Oint) 1 inch Q6HR TOPICAL 09/05/16 00:45 09/07/16 23:38 (Atropine Inj) 0.5 mg UNSCH PRN IV 09/05/16 11:45 (Zofran Inj) 4 mg Q4H PRN IV 09/05/16 11:45 (NS Flush) 2 ml BID IV FLUSH 09/05/16 21:00 09/07/16 08:08 (NS Flush) 2 ml UNSCH PRN IV FLUSH 09/05/16 16:30 (Norvasc) 5 mg DAILY PO 09/06/16 09:00 09/08/16 09:50 A/P Assessment and Plan 1. NSTEMI 66-year-old male with hypertension. 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 Heparin drip, nitro paste aspirin daily Chest x-ray reviewed and reveals patchy bilateral air space disease with small effusions. Differential diagnosis includes pulmonary edema and bronchial pneumonia HTN- chronic Controlled. continue home medication losartan 100mg daily DVT prophylaxis patient on heparin drip Discussed with Patient his and nurse miss Dumont, all questions answered to the best of my abilities. Discharge Planning after Surgery will go to Intensive Care Unit. Tylor Kenney MD Sep 08, 2016 16:11
[2016-09-08 16:57] LABS: APTT (PATIENT) 46.1 SEC (24.3-30.1)
[2016-09-08] MEDS: HEPARIN-D5W INJ 250 ML IV SCH (19:22)
[2016-09-09] VITALS (26 sets, daily range): BP systolic 115–143; BP diastolic 68–90; PULSE 50–77; RESP 16–20; TEMP 97.5–98.4; O2SAT 93–96
[2016-09-09 05:05] LABS: AUTOMATED NEUTROPHIL # 4.3 TH/MM3 (1.8-7.7); BASOPHIL # 0.1 TH/MM3 (0-0.2); BASOPHIL % 0.8 % (0.0-2.0); EOSINOPHIL # 0.2 TH/MM3 (0-0.4); EOSINOPHIL % 2.3 % (0.0-4.0); HEMO FLAGS DIFF FINAL; LYMPH % 33.7 % (9.0-44.0); LYMPHOCYTE # 2.6 TH/MM3 (1.0-4.8); MEAN CELL VOLUME 87.1 FL (80.0-100.0); MEAN CORPUSCULAR HEMOGLOBIN 29.8 PG (27.0-34.0); MEAN CORPUSCULAR HGB CONC 34.2 % (32.0-36.0); MONO % 6.9 % (0.0-8.0); NEUT % 56.3 % (16.0-70.0); PLATELET COUNT 282 TH/MM3 (150-450); RED CELL DISTRIBUTION WIDTH 13.1 % (11.6-17.2); WHITE BLOOD COUNT 7.6 TH/MM3 (4.0-11.0)
[2016-09-09 05:18] LABS: APTT (PATIENT) 51.2 SEC (24.3-30.1); PROTHROMBIN TIME - PATIENT 10.7 SEC (9.8-11.6)
[2016-09-09 05:31] LABS: ALT (GPT) 89 U/L (12-78); ANION GAP 7 MEQ/L (5-15); AST (GOT) 42 U/L (15-37); BICARBONATE 28.4 MEQ/L (21.0-32.0); BLOOD UREA NITROGEN 18 MG/DL (7-18); CHLORIDE 106 MEQ/L (98-107); GLOMERULAR FILTRATION RATE 78 ML/MIN (>89); POTASSIUM 3.9 MEQ/L (3.5-5.1); SODIUM (NA) 141 MEQ/L (136-145)
[2016-09-09 05:34] LABS: ALKALINE PHOSPHATASE 86 U/L (45-117); TOTAL BILIRUBIN ADULT 0.4 MG/DL (0.2-1.0)
[2016-09-09] MEDS: NITROGLYCERIN 2% OINT 1 GM PACKET TOPICAL SCH ×3 (06:00→18:05)
[2016-09-09] MEDS: ASPIRIN EC 81 MG TABEC PO SCH (08:51)
[2016-09-09] MEDS: amLODIPine BESYLATE 5 MG TAB PO SCH (08:51)
[2016-09-09] MEDS: SODIUM CHLORIDE 0.9% FLUSH 10 ML FLUSH IV FLUSH SCH ×4 (08:53→21:00)
--- NOTE | 2016-09-09 10:13 | PD.CARD.PN ---
Subjective Subjective Remarks no complaints no overnight events Objective Medications Current Medications Medications (Trade) Dose Ordered Sig/Luz [place] Route Start Time Stop Time Status Last Admin (Heparin Inj) 5,000 units UNSCH PRN IV 09/05/16 01:00 Heparin Sodium (Porcine) 2500 units 2,500 units UNSCH PRN IV 09/05/16 01:00 09/07/16 02:14 (Heparin-D5W Inj) 250 ml @ 0 mls/hr TITRATE IV 09/04/16 19:00 09/08/16 19:22 (NS Flush) 2 ml UNSCH PRN IV FLUSH 09/04/16 20:00 (NS Flush) 2 ml BID IV FLUSH 09/04/16 21:00 09/08/16 09:50 (Narcan Inj) 0.4 mg UNSCH PRN IV 09/04/16 20:00 (Ecotrin Ec) 81 mg DAILY PO 09/05/16 09:00 09/09/16 08:51 (Nitroglycerin 2% Oint) 1 inch Q6HR TOPICAL 09/05/16 00:45 09/08/16 23:28 (Atropine Inj) 0.5 mg UNSCH PRN IV 09/05/16 11:45 (Zofran Inj) 4 mg Q4H PRN IV 09/05/16 11:45 (NS Flush) 2 ml BID IV FLUSH 09/05/16 21:00 09/07/16 08:08 (NS Flush) 2 ml UNSCH PRN IV FLUSH 09/05/16 16:30 (Norvasc) 5 mg DAILY PO 09/06/16 09:00 09/09/16 08:51 Vital Signs / I&O Vital Signs Date Time Temp Pulse Resp B/P Pulse Ox O2 Delivery O2 Flow Rate FiO2 09/09/16 08:30 Room Air 09/09/16 06:00 51 09/09/16 05:00 53 09/09/16 04:00 52 09/09/16 04:00 Room Air 09/09/16 04:00 98.1 52 18 115/71 93 09/09/16 03:00 53 09/09/16 02:00 50 09/09/16 01:00 56 09/09/16 00:00 98.4 58 18 121/80 94 09/09/16 00:00 Room Air 09/09/16 00:00 60 09/08/16 23:00 58 09/08/16 22:00 62 09/08/16 21:00 63 09/08/16 20:00 61 09/08/16 20:00 Room Air 09/08/16 20:00 98.3 61 20 137/86 94 09/08/16 18:04 63 09/08/16 17:00 66 09/08/16 16:50 98.1 64 16 130/83 96 09/08/16 16:00 60 09/08/16 15:00 66 09/08/16 14:01 69 09/08/16 13:05 85 09/08/16 12:12 60 09/08/16 11:25 98.1 66 16 126/74 95 09/08/16 11:00 60 I/O 09/08/16 09/08/16 09/08/16 09/09/16 09/09/16 09/09/16 07:00 15:00 23:00 07:00 15:00 23:00 Intake Total 370 ml 720 ml 610 ml Output Total 850 ml 650 ml 1000 ml Balance -480 ml 70 ml -390 ml Intake Oral 240 ml 720 ml 480 ml IV Total 130 ml 130 ml Output Urine Total 850 ml 650 ml 1000 ml # Bowel Movements 0 0 1 Physical Exam GENERAL: Well-nourished, well-developed patient. SKIN: Warm and dry. HEAD: Normocephalic. EYES: No scleral icterus. No injection or drainage. NECK: Supple, trachea midline. No JVD or lymphadenopathy. CARDIOVASCULAR: Regular rate and rhythm without murmurs, gallops, or rubs. RESPIRATORY: Breath sounds equal bilaterally. No accessory muscle use. GASTROINTESTINAL: Abdomen soft, non-tender, nondistended. EXTREMITIES: No cyanosis, or edema. NEUROLOGICAL: Awake, alert, and oriented x 3. Non-focal. Laboratory Laboratory Tests Test 09/08/16 09/09/16 09/09/16 16:29 04:10 05:42 Activated Partial 46.1 SEC 51.2 SEC Thromboplast Time White Blood Count 7.6 TH/MM3 Red Blood Count 4.60 MIL/MM3 Hemoglobin 13.7 GM/DL Hematocrit 40.0 % Mean Corpuscular Volume 87.1 FL Mean Corpuscular Hemoglobin 29.8 PG Mean Corpuscular Hemoglobin 34.2 % Concent Red Cell Distribution Width 13.1 % Platelet Count 282 TH/MM3 Mean Platelet Volume 7.8 FL Neutrophils (%) (Auto) 56.3 % Lymphocytes (%) (Auto) 33.7 % Monocytes (%) (Auto) 6.9 % Eosinophils (%) (Auto) 2.3 % Basophils (%) (Auto) 0.8 % Neutrophils # (Auto) 4.3 TH/MM3 Lymphocytes # (Auto) 2.6 TH/MM3 Monocytes # (Auto) 0.5 TH/MM3 Eosinophils # (Auto) 0.2 TH/MM3 Basophils # (Auto) 0.1 TH/MM3 CBC Comment DIFF FINAL Differential Comment Prothrombin Time 10.7 SEC Prothromb Time International 1.0 RATIO Ratio Sodium Level 141 MEQ/L Potassium Level 3.9 MEQ/L Chloride Level 106 MEQ/L Carbon Dioxide Level 28.4 MEQ/L Anion Gap 7 MEQ/L Blood Urea Nitrogen 18 MG/DL Creatinine 0.97 MG/DL Estimat Glomerular Filtration 78 ML/MIN Rate Random Glucose 91 MG/DL Calcium Level 9.1 MG/DL Total Bilirubin 0.4 MG/DL Aspartate Amino Transf 42 U/L (AST/SGOT) Alanine Aminotransferase 89 U/L (ALT/SGPT) Alkaline Phosphatase 86 U/L Total Protein 7.3 GM/DL Albumin 2.9 GM/DL Blood Type O POSITIVE O POSITIVE Antibody Screen NEGATIVE Crossmatch Leukocyte-Reduced Red Blood Cells Blood Bank Comment Imaging Last Impressions Lower Extremity Ultrasound 09/05/16 0000 Signed Impressions: Service Date/Time: Monday, September 05, 2016 18:20 - CONCLUSION: Venous mapping performed with measurements given above. Scott Smith MD Carotid Artery Ultrasound 09/05/16 0000 Signed Impressions: Service Date/Time: Monday, September 05, 2016 12:23 - CONCLUSION: 1. No significant flow-limiting carotid artery stenosis. 2. Antegrade vertebral artery flow bilaterally. Ermias Schwartz MD Chest X-Ray 09/04/16 2671 Signed Impressions: Service Date/Time: Sunday, September 04, 2016 17:52 - CONCLUSION: 1. Patchy basilar airspace disease with small effusions. Differential diagnosis includes pulmonary edema and bronchopneumonia. Marko Rain MD Assessment and Plan Problem List: (1) Non-ST elevation (NSTEMI) myocardial infarction Assessment and Plan: CABG in AM Juan Daniel Solares MD Sep 09, 2016 10:12
--- NOTE | 2016-09-09 10:55 | HHI.PR ---
Subjective Remarks This is a pleasant 66 y/o Male with Hypertension, Then last Saturday patient was out in the heat waxing a car and reports he got, "over heated." Patient was laying down trying to cool off then vomited and passed out on . Since that time he has continued to have SOB and noticed that he fatigues more easily over the past few weeks. SOB worse with exertion better with rest. complaint of Chest pain and his Troponin 7.81 He has Hypertension. 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 09/09: Seen in his bedroom in the presence of his , no nausea, vomit or diarrhea seen with nurse Miss Dumont no new issues, awaiting for Surgery tomorrow will go to CVICU after surgery. Objective Vital Signs Date Time Temp Pulse Resp B/P Pulse Ox O2 Delivery O2 Flow Rate FiO2 09/09/16 08:30 Room Air 09/09/16 07:35 97.8 54 16 120/74 94 09/09/16 06:00 51 09/09/16 05:00 53 09/09/16 04:00 52 09/09/16 04:00 Room Air 09/09/16 04:00 98.1 52 18 115/71 93 09/09/16 03:00 53 09/09/16 02:00 50 09/09/16 01:00 56 09/09/16 00:00 98.4 58 18 121/80 94 09/09/16 00:00 Room Air 09/09/16 00:00 60 09/08/16 23:00 58 09/08/16 22:00 62 09/08/16 21:00 63 09/08/16 20:00 61 09/08/16 20:00 Room Air 09/08/16 20:00 98.3 61 20 137/86 94 09/08/16 18:04 63 09/08/16 17:00 66 09/08/16 16:50 98.1 64 16 130/83 96 09/08/16 16:00 60 09/08/16 15:00 66 09/08/16 14:01 69 09/08/16 13:05 85 09/08/16 12:12 60 09/08/16 11:25 98.1 66 16 126/74 95 09/08/16 11:00 60 I/O 09/08/16 09/08/16 09/08/16 09/09/16 09/09/16 09/09/16 07:00 15:00 23:00 07:00 15:00 23:00 Intake Total 370 ml 720 ml 610 ml Output Total 850 ml 650 ml 1000 ml Balance -480 ml 70 ml -390 ml Intake Oral 240 ml 720 ml 480 ml IV Total 130 ml 130 ml Output Urine Total 850 ml 650 ml 1000 ml # Bowel Movements 0 0 1 Result Diagram: 09/09/16 0410 09/09/16 0410 Imaging Last Impressions Lower Extremity Ultrasound 09/05/16 0000 Signed Impressions: Service Date/Time: Monday, September 05, 2016 18:20 - CONCLUSION: Venous mapping performed with measurements given above. Scott Smith MD Carotid Artery Ultrasound 09/05/16 0000 Signed Impressions: Service Date/Time: Monday, September 05, 2016 12:23 - CONCLUSION: 1. No significant flow-limiting carotid artery stenosis. 2. Antegrade vertebral artery flow bilaterally. Ermias Schwartz MD Chest X-Ray 09/04/16 1741 Signed Impressions: Service Date/Time: Sunday, September 04, 2016 17:52 - CONCLUSION: 1. Patchy basilar airspace disease with small effusions. Differential diagnosis includes pulmonary edema and bronchopneumonia. Marko Rain MD Procedures Cardiac Cath with multivessel disease Other Results Laboratory Tests Test 09/05/16 09/06/16 09/06/16 09/09/16 05:00 10:15 13:20 04:10 Total Creatine Kinase 257 U/L Troponin I 9.07 NG/ML Triglycerides Level 78 MG/DL Cholesterol Level 143 MG/DL LDL Cholesterol 88 MG/DL HDL Cholesterol 39.2 MG/DL Cholesterol/HDL Ratio 3.64 RATIO Nasal Screen MRSA (PCR) MRSA NOT DETECTED Urine Color YELLOW Urine Turbidity CLEAR Urine pH 7.0 Urine Specific [place] 1.014 Urine Protein NEG mg/dL Urine Glucose (UA) NEG mg/dL Urine Ketones NEG mg/dL Urine Occult Blood NEG Urine Nitrite NEG Urine Bilirubin NEG Urine Urobilinogen LESS THAN 2.0 MG/DL Urine Leukocyte Esterase NEG Urine RBC LESS THAN 1 /hpf Urine WBC LESS THAN 1 /hpf Microscopic Urinalysis Comment CULT NOT INDICATED White Blood Count 7.6 TH/MM3 Red Blood Count 4.60 MIL/MM3 Hemoglobin 13.7 GM/DL Hematocrit 40.0 % Mean Corpuscular Volume 87.1 FL Mean Corpuscular Hemoglobin 29.8 PG Mean Corpuscular Hemoglobin 34.2 % Concent Red Cell Distribution Width 13.1 % Platelet Count 282 TH/MM3 Mean Platelet Volume 7.8 FL Neutrophils (%) (Auto) 56.3 % Lymphocytes (%) (Auto) 33.7 % Monocytes (%) (Auto) 6.9 % Eosinophils (%) (Auto) 2.3 % Basophils (%) (Auto) 0.8 % Neutrophils # (Auto) 4.3 TH/MM3 Lymphocytes # (Auto) 2.6 TH/MM3 Monocytes # (Auto) 0.5 TH/MM3 Eosinophils # (Auto) 0.2 TH/MM3 Basophils # (Auto) 0.1 TH/MM3 CBC Comment DIFF FINAL Differential Comment Prothrombin Time 10.7 SEC Prothromb Time International 1.0 RATIO Ratio Activated Partial 51.2 SEC Thromboplast Time Sodium Level 141 MEQ/L Potassium Level 3.9 MEQ/L Chloride Level 106 MEQ/L Carbon Dioxide Level 28.4 MEQ/L Anion Gap 7 MEQ/L Blood Urea Nitrogen 18 MG/DL Creatinine 0.97 MG/DL Estimat Glomerular Filtration 78 ML/MIN Rate Random Glucose 91 MG/DL Calcium Level 9.1 MG/DL Total Bilirubin 0.4 MG/DL Aspartate Amino Transf 42 U/L (AST/SGOT) Alanine Aminotransferase 89 U/L (ALT/SGPT) Alkaline Phosphatase 86 U/L Total Protein 7.3 GM/DL Albumin 2.9 GM/DL Antibody Screen NEGATIVE Crossmatch Leukocyte-Reduced Red Blood Cells Blood Bank Comment Test 09/09/16 05:42 Blood Type O POSITIVE Objective Remarks GENERAL: This is a well-nourished, well-developed patient, in no apparent distress. SKIN: No rashes, ecchymoses or lesions. Cool and dry. HEAD: Atraumatic. Normocephalic. No temporal or scalp tenderness. EYES: Extraocular motions intact. No scleral icterus. No injection or drainage. CARDIOVASCULAR: Regular rate and rhythm without murmurs, gallops, or rubs. RESPIRATORY: Clear to auscultation. Breath sounds equal bilaterally. No wheezes , rales, or rhonchi. GASTROINTESTINAL: Abdomen soft, non-tender, nondistended. No hepato-splenomegaly , or palpable masses. No guarding. MUSCULOSKELETAL: Extremities without clubbing, cyanosis, or edema. No joint tenderness, effusion, or edema noted. No calf tenderness. Negative Homans sign bilaterally. NEUROLOGICAL: Awake and alert. No focal deficits appreciated. Motor and sensory grossly within normal limits. Five out of 5 muscle strength in all muscle groups. Normal speech. Medications and IVs Current Medications Medications (Trade) Dose Ordered Sig/[facility] Route Start Time Stop Time Status Last Admin (Heparin Inj) 5,000 units UNSCH PRN IV 09/05/16 01:00 Heparin Sodium (Porcine) 2500 units 2,500 units UNSCH PRN IV 09/05/16 01:00 09/07/16 02:14 (Heparin-D5W Inj) 250 ml @ 0 mls/hr TITRATE IV 09/04/16 19:00 09/08/16 19:22 (NS Flush) 2 ml UNSCH PRN IV FLUSH 09/04/16 20:00 (NS Flush) 2 ml BID IV FLUSH 09/04/16 21:00 09/08/16 09:50 (Narcan Inj) 0.4 mg UNSCH PRN IV 09/04/16 20:00 (Ecotrin Ec) 81 mg DAILY PO 09/05/16 09:00 09/09/16 08:51 (Nitroglycerin 2% Oint) 1 inch Q6HR TOPICAL 09/05/16 00:45 09/08/16 23:28 (Atropine Inj) 0.5 mg UNSCH PRN IV 09/05/16 11:45 (Zofran Inj) 4 mg Q4H PRN IV 09/05/16 11:45 (NS Flush) 2 ml BID IV FLUSH 09/05/16 21:00 09/07/16 08:08 (NS Flush) 2 ml UNSCH PRN IV FLUSH 09/05/16 16:30 (Norvasc) 5 mg DAILY PO 09/06/16 09:00 09/09/16 08:51 A/P Assessment and Plan 1. NSTEMI 66-year-old male with hypertension. 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 Heparin drip, nitro paste aspirin daily Chest x-ray reviewed and reveals patchy bilateral air space disease with small effusions. no signs of infection. HTN- chronic Controlled. continue home medication losartan 100mg daily DVT prophylaxis patient on heparin drip Discussed with Patient his and nurse miss Dumont, all questions answered to the best of my abilities. Discharge Planning after Surgery will go to Intensive Care Unit. Tylor Kenney MD Sep 09, 2016 10:55
[2016-09-09 13:16] LABS: HEMOGLOBIN A1b 1.6 %; HEMOGLOBIN Ao 85.7 %; HEMOGLOBIN LA1C 1.9 %; HEMOGLOBIN P3 3.7 %
[2016-09-09] MEDS: HEPARIN-D5W INJ 250 ML IV SCH (13:50)
[2016-09-09 17:57] LABS: APTT (PATIENT) 47.5 SEC (24.3-30.1)
[2016-09-10] VITALS (25 sets, daily range): BP systolic 97–144; BP diastolic 56–83; PULSE 50–92; RESP 8–18; TEMP 96.3–98.2; O2SAT 92–97
[2016-09-10] MEDS ORDERED: GLYCOPYRROLATE 0.2 MG/ML VIAL IV ONE (05:00)
[2016-09-10] MEDS ORDERED: EPINEPHrine HCL (1:1000) 30 MG/30 ML VIAL IV ONE (05:00)
[2016-09-10] MEDS ORDERED: MAGNESIUM SULFATE 1000 MG/2 ML VIAL (PED) IV ONE (05:00)
[2016-09-10] MEDS ORDERED: HEPARIN SODIUM - SQ 10,000 UNITS/ML VIAL SQ ONE (05:00)
[2016-09-10] MEDS ORDERED: ARTIFICIAL TEARS OPTH OINT 3.5 APPLIC/3.5 GM TUBO ONE (05:00)
[2016-09-10] MEDS ORDERED: NITROGLYCERIN-DEXTROSE INJ 250 ML IV ONE (05:00)
[2016-09-10] MEDS ORDERED: ETOMIDATE 40 MG/20 ML VIAL IV PUSH ONE (05:00)
[2016-09-10] MEDS ORDERED: AMINOCAPROIC ACID INJ 250 MG/ML 20 ML VIAL IV ONE (05:00)
[2016-09-10] MEDS: NITROGLYCERIN 2% OINT 1 GM PACKET TOPICAL SCH ×2 (05:03)
[2016-09-10] MEDS ORDERED: ceFAZolin 2 GM PREMIX 50 ML ONE (06:42)
[2016-09-10] MEDS ORDERED: VANCOMYCIN HCL 1000 MG VIAL ONE (06:42)
[2016-09-10] MEDS ORDERED: HEPARIN SODIUM - SQ 10,000 UNITS/ML VIAL ONE (06:43)
[2016-09-10] MEDS ORDERED: methylPREDNISolone SOD SUCC 125 MG/2 ML VIAL ONE (06:43)
[2016-09-10] MEDS ORDERED: CARDIOPLEGIC IRR 1,000 ML ONE (06:58)
[2016-09-10] MEDS ORDERED: MANNITOL INJ 50 ML ONE (06:59)
[2016-09-10] MEDS ORDERED: POTASSIUM CHLORIDE 40 MEQ/20 ML VIAL ONE (06:59)
[2016-09-10] MEDS ORDERED: CHLORHEXIDINE GLUCONATE 2 % 1 PACK (2 CLOTHS) OTHER ONE (07:00)
[2016-09-10] MEDS ORDERED: ALBUMIN HUMAN 25% 12.5 GM/50 ML BAGP IV ONE (07:00)
[2016-09-10] MEDS ORDERED: SODIUM BICARBONATE 8.4% INJ 50 ML ONE (07:00)
[2016-09-10] MEDS ORDERED: HEPARIN SODIUM - IV 10,000 UNITS/10 ML VIAL ONE (07:01)
[2016-09-10 07:05] LABS: HEMATOCRIT 42.4 % (39.0-51.0); MEAN CELL VOLUME 88.2 FL (80.0-100.0); MEAN CORPUSCULAR HEMOGLOBIN 29.6 PG (27.0-34.0); MEAN CORPUSCULAR HGB CONC 33.6 % (32.0-36.0); PLATELET COUNT 292 TH/MM3 (150-450); RED CELL DISTRIBUTION WIDTH 12.8 % (11.6-17.2); REVIEW FLAG FINAL; WHITE BLOOD COUNT 7.8 TH/MM3 (4.0-11.0)
[2016-09-10] MEDS: amLODIPine BESYLATE 5 MG TAB PO SCH (09:00)
[2016-09-10] MEDS ORDERED: DEXMEDETOMIDINE HCL 200 MCG/2 ML VIAL ONE (11:06)
[2016-09-10] MEDS ORDERED: LACTATED RINGER'S 1000 ML INJ 500 ML IV PRN (11:12)
[2016-09-10] MEDS ORDERED: hydrALAZINE HCL 20 MG/ML VIAL IV PRN (11:15)
[2016-09-10] MEDS ORDERED: MAGNESIUM SULFATE INJ 2 GM in SODIUM CHLORIDE 0.9% INJ 100 ML IV PRN ×4 (11:15)
[2016-09-10] MEDS ORDERED: CALCIUM CHLORIDE INJ 1 GM in SODIUM CHLORIDE 0.9% INJ 100 ML IV PRN (11:15)
[2016-09-10] MEDS ORDERED: RESP: ALBUTEROL 2.5 MG/IPRATROPIUM 0.5 MG NEB (PRN) NEB ×2 (11:15→21:15)
[2016-09-10] MEDS ORDERED: DEXTROSE 50% IN WATER 50 ML VIAL(D50) IV PUSH PRN (11:15)
[2016-09-10] MEDS ORDERED: POTASSIUM CHLOR 20 MEQ PREMIX 100 ML IV PRN ×3 (11:15)
[2016-09-10] MEDS ORDERED: SODIUM CHLORIDE 0.9% FLUSH 10 ML FLUSH IV FLUSH PRN (11:15)
[2016-09-10] MEDS ORDERED: METOPROLOL TARTRATE 5 MG/5 ML VIAL IV PUSH PRN (11:15)
[2016-09-10] MEDS ORDERED: ACETAMINOPHEN 325 MG TAB PO PRN (11:15)
[2016-09-10] MEDS ORDERED: ONDANSETRON HCL 4 MG/2 ML VIAL IV PUSH PRN (11:15)
[2016-09-10] MEDS ORDERED: ACETAMINOPHEN 650 MG SUPP RECTAL PRN (11:15)
[2016-09-10] MEDS ORDERED: CALCIUM CHLORIDE 10% 1 GRAM/10 ML VIAL IV PRN (11:15)
[2016-09-10] MEDS ORDERED: ceFAZolin INJ 1,000 MG VIAL ONE (11:25)
--- NOTE | 2016-09-10 11:26 | PD.OP ---
cc: Juan Daniel Solares MD; Nettie Ball MD Operative Report Date of Surgery: Sep 10, 2016 Preoperative Diagnosis: (1) Non-ST elevation (NSTEMI) myocardial infarction (2) CAD (coronary artery disease) Postoperative Diagnosis: same Procedure: CABG x 4 E[place] to LAD - good SVG to D1 sequential to OM - good SVG to PDA - good EVH Anesthesia: Dr. Clement Surgeon: Nettie Ball Enamel Shader(s): AIDA Quezada Operation and Findings: The risks, benefits, complications, treatment options, and expected outcomes were discussed with the patient. The possibilities of reaction to medication, pulmonary aspiration, perforation of viscus, bleeding, recurrent infection, the need for additional procedures, failure to diagnose a condition, and creating a complication requiring transfusion or operation were discussed with the patient. The patient concurred with the proposed plan, giving informed consent. The site of surgery properly noted/marked. The patient was taken to Operating Room, identified as Syed Gonzales and the procedure verified as CABG, EVH. A Time Out was held and the above information confirmed. Standard monitoring lines and Taylor catheter were placed. General anesthesia was induced. The patient was prepped and draped in a sterile fashion. A median sternotomy was performed and electrocautery was used to obtain hemostasis. The left internal mammary artery was procured as a pedicle from the 7th rib to the 1st rib in the usual manner. Simultaneously left greater saphenous vein was procured from the left leg using a minimally invasive endoscopic technique. The vein was prepared for anastomosis and the leg wound was irrigated and closed in 2 layers. The pericardium was opened and a pericardial sling was created using interrupted 0 silk sutures. The patient was heparinized for cardiopulmonary bypass and the distal mammary pedicle was instrumented for anastomosis. The heart was instrumented for cardiopulmonary bypass in the usual manner. Antegrade blood cardioplegia was employed. The patient was placed on cardiopulmonary bypass. An aortic cross-clamp was applied and the heart was arrested using cold blood cardioplegia. Antegrade cardioplegia was administered after he each anastomosis. After adequate arrest, the distal right coronary circulation was investigated and the PDA was opened with a Leonard blade and found to be a 1.5 millimeter good target. Saphenous vein was approximated to the PDA artery using a running 7 0 Prolene suture. The graft was measured for length and orientation and the proximal anastomosis was constructed to the ascending aorta using a running 5 0 Prolene suture after creating an aortotomy with a 5 millimeter punch. The 1st circumflex marginal artery was then opened with a Leonard blade and found to be a 1.5 millimeter good target. Saphenous vein was approximated to the OM1 artery using a running 7 0 Prolene suture. The graft was measured for a sequential anastomosis to the D1 artery. A venotomy was performed. The D1 artery was opened with a Leonard blade and found to be a 1.5 mm good target. A side to side anastomosis was constructed using a running 7-0 Prolene suture. The graft was measured for length and orientation and was suspended from the pericardium. The distal LAD was opened with a Leonard blade and found to be a 1 millimeter fair target. The left internal mammary artery was approximated to the LAD using a running 7 0 Prolene suture. The pedicle was attached to the epicardium using interrupted 5 0 silk suture. The patient was systemically rewarmed and received a hotshot dose of warm blood cardioplegia. The aorta was vented and the proximal anastomosis to the D1/OM1 graft was accomplished using a running 5 0 Prolene suture after creating an aortotomy was a 5 millimeter punch. The cross-clamp was removed and all proximal and distal anastomoses were examined for hemostasis. The patient was weaned from cardiopulmonary bypass. Protamine was given. There was no adverse reaction. Decannulation was carried out without incident. Wound was checked for hemostasis which was obtained using electrocautery. A 36 Ugandan mediastinal and 32 Ugandan left pleural chest tubes were placed and secured to the skin with 0 silk suture. The sternum was closed with stainless steel wire. The fascia was closed with 1. PDS. The subcutaneous tissue was closed using a running 2-0 Vicryl suture. The skin was closed with 4- 0 Monocryl. Sterile dressings were placed. At the end of the operation, all sponge, instruments, and needle counts were correct. The patient was transferred to the CICU in stable condition. Findings: Good LV function XC: 67 min CPB: 77 min Drains: mediastinal x 1 pleural x 1 Complications: none Disposition: to CVICU in stable condition Nettie Ball MD Sep 10, 2016 11:26
[2016-09-10] MEDS ORDERED: Post-op Orders (for Pharmacy) MISC OTHER ONE (11:52)
[2016-09-10] MEDS ORDERED: CLEVIDIPINE INJ 50 ML IV SCH (12:00)
[2016-09-10] MEDS ORDERED: INSULIN REGULAR (IV INFUSION) 100 UNITS in SODIUM CHLORIDE 0.9% INJ 99 ML IV SCH (12:00)
[2016-09-10] MEDS ORDERED: MIDAZOLAM HCL 5 MG/5 ML VIAL ONE (12:33)
[2016-09-10] MEDS ORDERED: fentaNYL CITRATE 1000 MCG/20 ML VIAL ONE (12:34)
[2016-09-10] MEDS ORDERED: RESP: RACEPINEPHRINE 2.25% 0.5 ML NEB NEB PRN ×2 (13:00→21:15)
[2016-09-10] MEDS ORDERED: POTASSIUM CHLORIDE 20 MEQ CONTROLLED RELEASE TAB PO PRN ×2 (13:00)
--- NOTE | 2016-09-10 13:08 | RADRPT ---
EXAM DATE/TIME: 09/10/2016 12:13 [facility] COMPARISON: CHEST SINGLE AP, September 04, 2016, 17:52. INDICATIONS : Post op cabg. MEDICAL HISTORY : None. SURGICAL HISTORY : None. ENCOUNTER: Initial ACUITY: 1 day PAIN SCORE: 0/10 LOCATION: Bilateral chest FINDINGS: Endotracheal tube is present with tip 4-5 cm above the mercedez. Nasogastric tube descends in the stoma ch. Left subclavian central catheter is present in position. Left thoracostomy tube is present at the left base. There is no evidence of pneumothorax. Lungs are symmetrically aerated with minimal basila r atelectasis. Cardiac contours are satisfactory for technique and projection. CONCLUSION: Satisfactory postop appearance Scott Sheppard MD on September 10, 2016 at 13:04 Board Certified Radiologist. This report was verified electronically.
[2016-09-10] MEDS: ACETAMINOPHEN 1000 MG/100 ML VIAL IV SCH ×3 (13:24→23:22)
[2016-09-10] MEDS: RESP: ALBUTEROL 2.5 MG/IPRATROPIUM 0.5 MG NEB (SCH) NEB ×3 (15:55→22:43)
[2016-09-10] MEDS: ATORVASTATIN 40 MG TAB PO SCH (20:16)
[2016-09-10] MEDS: AMIODARONE 200 MG TAB PO SCH (20:16)
[2016-09-10] MEDS: SODIUM CHLORIDE 0.9% FLUSH 10 ML FLUSH IV FLUSH SCH (20:17)
[2016-09-11] VITALS (23 sets, daily range): BP systolic 109–134; BP diastolic 65–90; PULSE 67–99; RESP 16–18; TEMP 97.8–98.5; O2SAT 95–99
[2016-09-11] MEDS: RESP: ALBUTEROL 2.5 MG/IPRATROPIUM 0.5 MG NEB (SCH) NEB ×4 (03:05→19:13)
[2016-09-11 04:32] LABS: HEMATOCRIT 36.9 % (39.0-51.0); MEAN CELL VOLUME 87.4 FL (80.0-100.0); MEAN CORPUSCULAR HEMOGLOBIN 29.7 PG (27.0-34.0); PLATELET COUNT 198 TH/MM3 (150-450); RED BLOOD COUNT 4.22 MIL/MM3 (4.50-5.90); REVIEW FLAG FINAL; WHITE BLOOD COUNT 14.2 TH/MM3 (4.0-11.0)
[2016-09-11 04:53] LABS: BICARBONATE 23.7 MEQ/L (21.0-32.0); POTASSIUM 4.5 MEQ/L (3.5-5.1)
[2016-09-11] MEDS: oxyCODONE/ACETAMINOPHEN 5 MG/325 MG TAB PO PRN ×4 (05:44→21:00)
[2016-09-11] MEDS: PANTOPRAZOLE SOD 40 MG DELAYED RELEASE TAB PO SCH (05:48)
[2016-09-11] MEDS: ACETAMINOPHEN 1000 MG/100 ML VIAL IV SCH (05:48)
--- NOTE | 2016-09-11 06:24 | RADRPT ---
EXAM DATE/TIME: 09/11/2016 04:36 [facility] COMPARISON: CHEST SINGLE AP, September 10, 2016, 12:13. INDICATIONS : Shortness of breath. MEDICAL HISTORY : None. SURGICAL HISTORY : None. ENCOUNTER: Initial ACUITY: 1 day PAIN SCORE: 0/10 LOCATION: Bilateral chest FINDINGS: Interval extubation and removal of NG tube. Left subclavian catheter tip is projected over the mid s uperior vena cava. Left chest drainage tube is stable in position with opacity along the distal trac t of the tube. No evidence of pneumothorax. Right lung is clear. Both hemidiaphragms are well deli neated. CONCLUSION: Stable appearance to the lungs. No evidence pneumothorax. Kimani Abrams MD on September 11, 2016 at 6:22 Board Certified Radiologist. This report was verified electronically.
--- NOTE | 2016-09-11 07:28 | PD.CAR.PN ---
CVT Progress Note CVT: POD #: 1 Subjective/Hospital Course: pt seen and evaluated / full consult dictated sts data discussed with pt RISK SCORES About the STS Risk Calculator Procedure: CAB Only Risk of Mortality: 0.838% Morbidity or Mortality: 11.85% Long Length of Stay: 4.144% Short Length of Stay: 49.712% Permanent Stroke: 0.708% Prolonged Ventilation: 8.218% DSW Infection: 0.469% Renal Failure: 2.17% Reoperation: 4.496% 09/07/16 No complaints today 09/11/16 Doing well, s/p CABG x 4. c/o incisional pain Objective: Vital Signs Date Time Temp Pulse Resp B/P Pulse Ox O2 Delivery O2 Flow Rate FiO2 09/11/16 06:50 18 09/11/16 06:03 87 09/11/16 05:00 84 09/11/16 04:00 90 09/11/16 03:00 99 09/11/16 03:00 98.5 83 18 109/65 99 121/85 09/11/16 03:00 99 Nasal Cannula 3.00 09/11/16 02:00 81 09/11/16 01:00 75 09/11/16 00:00 82 09/10/16 23:00 97.9 84 18 98/56 95 101/83 09/10/16 23:00 84 09/10/16 23:00 95 Nasal Cannula 3.00 09/10/16 22:00 92 09/10/16 21:00 78 09/10/16 20:00 89 09/10/16 19:00 98.0 79 18 110/71 95 130/75 09/10/16 19:00 95 Nasal Cannula 3.00 09/10/16 19:00 18 09/10/16 19:00 79 09/10/16 18:00 85 09/10/16 17:00 79 09/10/16 16:00 96 Nasal Cannula 3.00 09/10/16 16:00 76 09/10/16 15:34 97 Nasal Cannula 3 09/10/16 15:30 95 Nasal Cannula 3.00 09/10/16 15:30 60 09/10/16 15:19 94 45 09/10/16 15:00 82 09/10/16 15:00 97.4 82 18 108/74 92 122/78 09/10/16 15:00 92 Mechanical Ventilator 50 09/10/16 14:16 92 55 09/10/16 14:00 68 09/10/16 13:40 94 65 09/10/16 13:00 68 09/10/16 12:09 97.7 09/10/16 12:00 62 09/10/16 12:00 60 09/10/16 12:00 93 Mechanical Ventilator 60 09/10/16 12:00 96.3 62 8 97/60 93 105/56 09/10/16 11:58 94 85 Labs: Laboratory Tests Test 09/11/16 04:05 White Blood Count 14.2 TH/MM3 (4.0-11.0) Red Blood Count 4.22 MIL/MM3 (4.50-5.90) Hemoglobin 12.5 GM/DL (13.0-17.0) Hematocrit 36.9 % (39.0-51.0) Mean Corpuscular Volume 87.4 FL (80.0-100.0) Mean Corpuscular Hemoglobin 29.7 PG (27.0-34.0) Mean Corpuscular Hemoglobin 34.0 % Concent (32.0-36.0) Red Cell Distribution Width 13.0 % (11.6-17.2) Platelet Count 198 TH/MM3 (150-450) Mean Platelet Volume 8.2 FL (7.0-11.0) Sodium Level 141 MEQ/L (136-145) Potassium Level 4.5 MEQ/L (3.5-5.1) Chloride Level 107 MEQ/L (98-107) Carbon Dioxide Level 23.7 MEQ/L (21.0-32.0) Anion Gap 10 MEQ/L (5-15) Blood Urea Nitrogen 17 MG/DL (7-18) Creatinine 0.87 MG/DL (0.60-1.30) Estimat Glomerular Filtration 88 ML/MIN (>89) Rate Random Glucose 111 MG/DL (74-106) Calcium Level 8.3 MG/DL (8.5-10.1) Magnesium Level 2.0 MG/DL (1.5-2.5) Result Diagram: 09/11/165 09/11/16 0405 Imaging: Last 24 hours Impressions Chest X-Ray 09/11/16 0500 Signed Impressions: Service Date/Time: Sunday, September 11, 2016 04:36 - CONCLUSION: Stable appearance to the lungs. No evidence pneumothorax. Kimani Abrams MD Cardiovascular: RRR Telemetry: NSR Pulmonary: CTA GI/: NABS, NT Incision: dry and intact CT: 170ml/last 12 hrs Plan: Transfer to stepdown Advance diet Remove arana Up to chair, ambulate x 6 Statin, beta erika, ASA (1) Non-ST elevation (NSTEMI) myocardial infarction Plan: CABG in AM Nettie Ball MD Sep 11, 2016 07:28
[2016-09-11] MEDS ORDERED: GLUCAGON 1 MG/ML VIAL OTHER PRN (07:30)
[2016-09-11] MEDS ORDERED: SOD PHOSPHATE/SOD BIPHOSPHATE (ADULT) ENEMA 133ML RECTAL PRN (07:30)
[2016-09-11] MEDS ORDERED: DEXTROSE 50% IN WATER 50 ML VIAL(D50) IV PRN (07:30)
[2016-09-11] MEDS ORDERED: BISACODYL 10 MG SUPP RECTAL PRN (07:30)
[2016-09-11] MEDS ORDERED: PILL SPLITTER OTHER PRN (07:30)
[2016-09-11] MEDS: SODIUM CHLORIDE 0.9% FLUSH 10 ML FLUSH IV FLUSH SCH ×2 (09:00→21:01)
[2016-09-11] MEDS: MAGNESIUM HYDROXIDE SUSP 30 ML CUP PO SCH (09:42)
[2016-09-11] MEDS: amLODIPine BESYLATE 5 MG TAB PO SCH (09:42)
[2016-09-11] MEDS: METOPROLOL TARTRATE 25 MG TAB PO SCH ×2 (09:43→21:00)
[2016-09-11] MEDS: MULTIVITAMINS/MINERALS THERAPEUTIC TAB PO SCH (09:43)
[2016-09-11] MEDS: ASPIRIN 81 MG CHEW TAB PO SCH (09:43)
[2016-09-11] MEDS: AMIODARONE 200 MG TAB PO SCH ×2 (09:43→21:00)
[2016-09-11] MEDS: INSULIN ASPART SUPPLEMENTAL SCALE SQ SCH ×4 (10:00→22:00)
--- NOTE | 2016-09-11 16:14 | EKG ---
Date Performed: 09/11/2016 Time Performed: 05:18:02 PTAGE: 66 years EKG: Sinus rhythm with PVC(s). Inferior T wave changes are nonspecific Low QRS voltages in precordial leads Inferior M I- age undeterminate Borderline ECG PREVIOUS TRACING : 09/05/2016 05.30 DOCTOR: Jonathan Hansen Interpretating Date/Time 09/11/2016 16:13:38
[2016-09-11] MEDS: ATORVASTATIN 40 MG TAB PO SCH (21:00)
[2016-09-11] MEDS: SENNOSIDES 8.6 MG TAB PO SCH (21:00)
[2016-09-11] MEDS: DOCUSATE SODIUM 100 MG CAP PO SCH (21:00)
[2016-09-12] VITALS (31 sets, daily range): BP systolic 112–127; BP diastolic 65–80; PULSE 76–106; RESP 16–18; TEMP 98–99.5; O2SAT 82–98
[2016-09-12] MEDS: oxyCODONE/ACETAMINOPHEN 5 MG/325 MG TAB PO PRN ×4 (01:20→21:16)
[2016-09-12] MEDS: PANTOPRAZOLE SOD 40 MG DELAYED RELEASE TAB PO SCH (04:19)
[2016-09-12 06:37] LABS: AUTOMATED NEUTROPHIL # 9.8 TH/MM3 (1.8-7.7); BASOPHIL % 0.2 % (0.0-2.0); EOSINOPHIL # 0.1 TH/MM3 (0-0.4); EOSINOPHIL % 0.4 % (0.0-4.0); HEMATOCRIT 34.9 % (39.0-51.0); HEMO FLAGS DIFF FINAL; LYMPH % 17.7 % (9.0-44.0); LYMPHOCYTE # 2.3 TH/MM3 (1.0-4.8); MEAN CELL VOLUME 88.6 FL (80.0-100.0); MEAN CORPUSCULAR HGB CONC 33.9 % (32.0-36.0); MONO % 7.8 % (0.0-8.0); NEUT % 73.9 % (16.0-70.0); PLATELET COUNT 194 TH/MM3 (150-450); RED BLOOD COUNT 3.94 MIL/MM3 (4.50-5.90); RED CELL DISTRIBUTION WIDTH 13.2 % (11.6-17.2); WHITE BLOOD COUNT 13.2 TH/MM3 (4.0-11.0)
[2016-09-12 06:45] LABS: BICARBONATE 28.5 MEQ/L (21.0-32.0); MAGNESIUM 2.1 MG/DL (1.5-2.5); POTASSIUM 4.3 MEQ/L (3.5-5.1)
[2016-09-12] MEDS: RESP: ALBUTEROL 2.5 MG/IPRATROPIUM 0.5 MG NEB (SCH) NEB (07:25)
[2016-09-12] MEDS: AMIODARONE 200 MG TAB PO SCH ×2 (08:31→21:15)
[2016-09-12] MEDS: amLODIPine BESYLATE 5 MG TAB PO SCH (08:31)
[2016-09-12] MEDS: MAGNESIUM HYDROXIDE SUSP 30 ML CUP PO SCH (08:32)
[2016-09-12] MEDS: METOPROLOL TARTRATE 25 MG TAB PO SCH ×2 (08:32→21:16)
[2016-09-12] MEDS: DOCUSATE SODIUM 100 MG CAP PO SCH ×2 (08:32→21:15)
[2016-09-12] MEDS: ASPIRIN 81 MG CHEW TAB PO SCH (08:32)
[2016-09-12] MEDS: MULTIVITAMINS/MINERALS THERAPEUTIC TAB PO SCH (08:32)
[2016-09-12] MEDS: SODIUM CHLORIDE 0.9% FLUSH 10 ML FLUSH IV FLUSH SCH ×2 (08:33→21:17)
[2016-09-12] MEDS: POLYETHYLENE GLYCOL 17 GM PKG PO SCH (09:00)
--- NOTE | 2016-09-12 09:36 | PD.CAR.PN ---
CVT Progress Note CVT: POD #: 2 Subjective/Hospital Course: pt seen and evaluated / full consult dictated sts data discussed with pt RISK SCORES About the STS Risk Calculator Procedure: CAB Only Risk of Mortality: 0.838% Morbidity or Mortality: 11.85% Long Length of Stay: 4.144% Short Length of Stay: 49.712% Permanent Stroke: 0.708% Prolonged Ventilation: 8.218% DSW Infection: 0.469% Renal Failure: 2.17% Reoperation: 4.496% 09/07/16 No complaints today 09/11/16 Doing well, s/p CABG x 4. c/o incisional pain 09/12/16 No complaints today. Objective: Vital Signs Date Time Temp Pulse Resp B/P Pulse Ox O2 Delivery O2 Flow Rate FiO2 09/12/16 07:27 98 09/12/16 07:27 82 09/12/16 07:01 76 09/12/16 06:00 79 09/12/16 05:00 84 09/12/16 04:00 88 09/12/16 04:00 98.5 88 16 116/80 93 09/12/16 03:00 76 09/12/16 02:00 84 09/12/16 01:00 84 09/12/16 00:00 98.3 84 16 112/70 92 09/12/16 00:00 84 09/11/16 23:00 82 09/11/16 22:00 74 09/11/16 21:00 90 09/11/16 20:00 91 09/11/16 20:00 98.2 91 16 129/79 95 09/11/16 20:00 95 Room Air 09/11/16 19:13 95 21 09/11/16 18:00 82 09/11/16 17:00 88 09/11/16 16:00 84 09/11/16 15:30 98.4 83 18 133/85 95 09/11/16 15:30 97 Room Air 09/11/16 15:00 86 09/11/16 14:18 97 09/11/16 14:00 78 09/11/16 13:38 97 Room Air 09/11/16 13:38 98.2 77 18 126/87 97 09/11/16 13:00 88 09/11/16 11:00 98 Nasal Cannula 2.00 09/11/16 11:00 70 09/11/16 11:00 98.1 67 18 134/90 98 Arterial Line Labs: Laboratory Tests Test 09/12/16 04:10 White Blood Count 13.2 TH/MM3 (4.0-11.0) Red Blood Count 3.94 MIL/MM3 (4.50-5.90) Hemoglobin 11.8 GM/DL (13.0-17.0) Hematocrit 34.9 % (39.0-51.0) Mean Corpuscular Volume 88.6 FL (80.0-100.0) Mean Corpuscular Hemoglobin 30.0 PG (27.0-34.0) Mean Corpuscular Hemoglobin 33.9 % Concent (32.0-36.0) Red Cell Distribution Width 13.2 % (11.6-17.2) Platelet Count 194 TH/MM3 (150-450) Mean Platelet Volume 8.8 FL (7.0-11.0) Neutrophils (%) (Auto) 73.9 % (16.0-70.0) Lymphocytes (%) (Auto) 17.7 % (9.0-44.0) Monocytes (%) (Auto) 7.8 % (0.0-8.0) Eosinophils (%) (Auto) 0.4 % (0.0-4.0) Basophils (%) (Auto) 0.2 % (0.0-2.0) Neutrophils # (Auto) 9.8 TH/MM3 (1.8-7.7) Lymphocytes # (Auto) 2.3 TH/MM3 (1.0-4.8) Monocytes # (Auto) 1.0 TH/MM3 (0-0.9) Eosinophils # (Auto) 0.1 TH/MM3 (0-0.4) Basophils # (Auto) 0.0 TH/MM3 (0-0.2) CBC Comment DIFF FINAL Differential Comment Sodium Level 139 MEQ/L (136-145) Potassium Level 4.3 MEQ/L (3.5-5.1) Chloride Level 104 MEQ/L (98-107) Carbon Dioxide Level 28.5 MEQ/L (21.0-32.0) Anion Gap 7 MEQ/L (5-15) Blood Urea Nitrogen 18 MG/DL (7-18) Creatinine 0.91 MG/DL (0.60-1.30) Estimat Glomerular Filtration 84 ML/MIN (>89) Rate Random Glucose 87 MG/DL (74-106) Calcium Level 8.0 MG/DL (8.5-10.1) Magnesium Level 2.1 MG/DL (1.5-2.5) Result Diagram: 09/12/1640909/12/16409 Cardiovascular: RRR Telemetry: SR with PACs Pulmonary: CTA GI/: NABS, NT Incision: dry and intact CT: 300ml/24 hrs Plan: Diurese Continue chest tubes one more day Encourage ambulation Stim BM Increase beta erika dose. (1) Non-ST elevation (NSTEMI) myocardial infarction Plan: CABG in AM Nettie Ball MD Sep 12, 2016 09:35
[2016-09-12] MEDS: INSULIN ASPART SUPPLEMENTAL SCALE SQ SCH ×3 (11:10→21:14)
[2016-09-12] MEDS: FUROSEMIDE 40 MG/4 ML VIAL IV PUSH SCH ×2 (12:55→18:18)
[2016-09-12] MEDS: SENNOSIDES 8.6 MG TAB PO SCH (21:00)
[2016-09-12] MEDS: ATORVASTATIN 40 MG TAB PO SCH (21:16)
[2016-09-13] VITALS (27 sets, daily range): BP systolic 111–155; BP diastolic 70–95; PULSE 64–90; RESP 16–22; TEMP 97.5–98.7; O2SAT 92–97
[2016-09-13 04:55] LABS: HEMATOCRIT 35.7 % (39.0-51.0); MEAN CELL VOLUME 88.5 FL (80.0-100.0); MEAN CORPUSCULAR HEMOGLOBIN 29.1 PG (27.0-34.0); MEAN CORPUSCULAR HGB CONC 32.9 % (32.0-36.0); PLATELET COUNT 209 TH/MM3 (150-450); RED BLOOD COUNT 4.04 MIL/MM3 (4.50-5.90); RED CELL DISTRIBUTION WIDTH 13.3 % (11.6-17.2); REVIEW FLAG FINAL; WHITE BLOOD COUNT 12.8 TH/MM3 (4.0-11.0)
[2016-09-13] MEDS: INSULIN ASPART SUPPLEMENTAL SCALE SQ SCH ×3 (06:02→16:00)
[2016-09-13] MEDS: oxyCODONE/ACETAMINOPHEN 5 MG/325 MG TAB PO PRN ×2 (06:04→21:12)
[2016-09-13] MEDS: PANTOPRAZOLE SOD 40 MG DELAYED RELEASE TAB PO SCH (06:05)
[2016-09-13] MEDS: POLYETHYLENE GLYCOL 17 GM PKG PO SCH (08:08)
[2016-09-13] MEDS: DOCUSATE SODIUM 100 MG CAP PO SCH ×2 (08:08→21:00)
[2016-09-13] MEDS: MAGNESIUM HYDROXIDE SUSP 30 ML CUP PO SCH (08:08)
[2016-09-13] MEDS: AMIODARONE 200 MG TAB PO SCH ×2 (08:09→21:12)
[2016-09-13] MEDS: amLODIPine BESYLATE 5 MG TAB PO SCH (08:09)
[2016-09-13] MEDS: ASPIRIN 81 MG CHEW TAB PO SCH (08:09)
[2016-09-13] MEDS: FUROSEMIDE 40 MG/4 ML VIAL IV PUSH SCH ×2 (08:10→17:38)
[2016-09-13] MEDS: MULTIVITAMINS/MINERALS THERAPEUTIC TAB PO SCH (08:10)
[2016-09-13] MEDS: SODIUM CHLORIDE 0.9% FLUSH 10 ML FLUSH IV FLUSH SCH ×2 (08:10→21:12)
[2016-09-13] MEDS: METOPROLOL TARTRATE 25 MG TAB PO SCH ×2 (08:10→21:12)
--- NOTE | 2016-09-13 09:29 | PD.CAR.PN ---
CVT Progress Note CVT: POD #: 3 Subjective/Hospital Course: pt seen and evaluated / full consult dictated sts data discussed with pt RISK SCORES About the STS Risk Calculator Procedure: CAB Only Risk of Mortality: 0.838% Morbidity or Mortality: 11.85% Long Length of Stay: 4.144% Short Length of Stay: 49.712% Permanent Stroke: 0.708% Prolonged Ventilation: 8.218% DSW Infection: 0.469% Renal Failure: 2.17% Reoperation: 4.496% 09/07/16 No complaints today 09/11/16 Doing well, s/p CABG x 4. c/o incisional pain 09/12/16 No complaints today. 09/13/16 No complaints. Doing well Objective: Vital Signs Date Time Temp Pulse Resp B/P Pulse Ox O2 Delivery O2 Flow Rate FiO2 09/13/16 07:00 79 09/13/16 06:00 83 09/13/16 05:00 71 09/13/16 04:00 70 09/13/16 03:50 98.7 73 16 112/74 92 09/13/16 03:00 73 09/13/16 02:00 69 09/13/16 01:00 68 09/13/16 00:00 64 09/12/16 23:20 98.2 81 16 119/75 94 09/12/16 23:00 79 09/12/16 22:00 78 09/12/16 21:00 84 09/12/16 20:00 82 09/12/16 19:45 99.5 85 18 115/70 95 09/12/16 19:45 95 Room Air 09/12/16 19:40 94 21 09/12/16 19:00 86 09/12/16 18:01 98 09/12/16 17:00 84 09/12/16 16:01 97 09/12/16 15:45 98.4 86 18 127/77 96 09/12/16 15:45 95 Room Air 09/12/16 15:01 85 09/12/16 14:00 94 09/12/16 13:00 82 09/12/16 12:01 92 09/12/16 11:30 98.6 76 18 120/72 95 09/12/16 11:30 95 Room Air 09/12/16 11:00 88 09/12/16 10:00 106 Labs: Laboratory Tests Test 09/13/16 04:25 White Blood Count 12.8 TH/MM3 (4.0-11.0) Red Blood Count 4.04 MIL/MM3 (4.50-5.90) Hemoglobin 11.8 GM/DL (13.0-17.0) Hematocrit 35.7 % (39.0-51.0) Mean Corpuscular Volume 88.5 FL (80.0-100.0) Mean Corpuscular Hemoglobin 29.1 PG (27.0-34.0) Mean Corpuscular Hemoglobin 32.9 % Concent (32.0-36.0) Red Cell Distribution Width 13.3 % (11.6-17.2) Platelet Count 209 TH/MM3 (150-450) Mean Platelet Volume 8.4 FL (7.0-11.0) Result Diagram: 09/13/16 0425 09/12/16 0410 Cardiovascular: RRR Telemetry: NSR Pulmonary: CTA GI/: NABS, NT Incision: dry and intact Plan: D/C chest tubes Encourage ambulation Stim BM Home tomorrow (1) Non-ST elevation (NSTEMI) myocardial infarction Plan: CABG in AM Nettie Ball MD Sep 13, 2016 09:29
--- NOTE | 2016-09-13 09:32 | HHI.FF ---
Face to Face Verification Diagnosis: (1) Non-ST elevation (NSTEMI) myocardial infarction (2) CAD (coronary artery disease) Physical Therapy Order: Evaluate and Treat, Improve ambulation Home Health Nursing Order: Medical education Signs/symptoms of disease process Medication education-adverse effect I have seen patient Syed Gonzales on 09/13/16. My clinical findings support the need for the requested home health care services because: Ltd mobility - disease progression Limited ability to care for self I certify that my clinical findings support that this patient is homebound because: Post-op weakness Nettie Ball MD Sep 13, 2016 09:32
[2016-09-13] MEDS ORDERED: DOCU1CAP39 PO (09:36)
[2016-09-13] MEDS ORDERED: AMIO200T PO (09:36)
[2016-09-13] MEDS ORDERED: OXYC1TAB63 PO (09:36)
[2016-09-13] MEDS ORDERED: ATOR40TA16 PO (09:36)
[2016-09-13] MEDS ORDERED: RAMI2.5C PO (09:36)
[2016-09-13] MEDS ORDERED: PANT40TA3 PO (09:36)
[2016-09-13] MEDS ORDERED: THERM PO (09:36)
[2016-09-13] MEDS ORDERED: METO25TA3 PO (09:36)
--- NOTE | 2016-09-13 09:41 | HHI.DS ---
Discharge Summary Admission Date Sep 04, 2016 at 19:42 Discharge Date: Sep 14, 2016 Admitting Diagnosis NSTEMI, pulmonary edema (1) Non-ST elevation (NSTEMI) myocardial infarction Diagnosis: Principal (2) CAD (coronary artery disease) Diagnosis: Principal (3) HTN (hypertension) Diagnosis: Secondary (4) Hyperlipidemia Diagnosis: Secondary (5) S/P CABG (coronary artery bypass graft) Diagnosis: Principal Procedures Cardiac Cath with multivessel disease Brief History This is a pleasant 66 y/o Male with Hypertension, Then last Saturday patient was out in the heat waxing a car and reports he got, "over heated." Patient was laying down trying to cool off then vomited and passed out on . Since that time he has continued to have SOB and noticed that he fatigues more easily over the past few weeks. SOB worse with exertion better with rest. complaint of Chest pain and his Troponin 7.81 He has Hypertension. Ruled-in for NSTEMI. He underwent LHC and was found to have left main and 3 vessel CAD. CBC/BMP: 09/13/16 0425 09/12/16 0410 Significant Findings Laboratory Tests Test 09/11/16 09/12/16 09/13/16 04:05 04:10 04:25 White Blood Count 14.2 TH/MM3 13.2 TH/MM3 12.8 TH/MM3 (4.0-11.0) (4.0-11.0) (4.0-11.0) Red Blood Count 4.22 MIL/MM3 3.94 MIL/MM3 4.04 MIL/MM3 (4.50-5.90) (4.50-5.90) (4.50-5.90) Hemoglobin 12.5 GM/DL 11.8 GM/DL 11.8 GM/DL (13.0-17.0) (13.0-17.0) (13.0-17.0) Hematocrit 36.9 % 34.9 % 35.7 % (39.0-51.0) (39.0-51.0) (39.0-51.0) Estimat Glomerular Filtration 88 ML/MIN (>89) 84 ML/MIN (>89) Rate Random Glucose 111 MG/DL (74-106) Calcium Level 8.3 MG/DL 8.0 MG/DL (8.5-10.1) (8.5-10.1) Neutrophils (%) (Auto) 73.9 % (16.0-70.0) Neutrophils # (Auto) 9.8 TH/MM3 (1.8-7.7) Monocytes # (Auto) 1.0 TH/MM3 (0-0.9) Imaging Last Impressions Chest X-Ray 09/11/16 0500 Signed Impressions: Service Date/Time: Sunday, September 11, 2016 04:36 - CONCLUSION: Stable appearance to the lungs. No evidence pneumothorax. Kimani Abrams MD Lower Extremity Ultrasound 09/05/16 0000 Signed Impressions: Service Date/Time: Monday, September 05, 2016 18:20 - CONCLUSION: Venous mapping performed with measurements given above. Scott Smith MD Carotid Artery Ultrasound 09/05/16 0000 Signed Impressions: Service Date/Time: Monday, September 05, 2016 12:23 - CONCLUSION: 1. No significant flow-limiting carotid artery stenosis. 2. Antegrade vertebral artery flow bilaterally. Ermias Schwartz MD PE at Discharge chest - CAT COR - RRR ABD - soft, NT, NABS wound - dry and intact Hospital Course Patient was stabilized and underwent CABG x 4 on Saturday. He had an uneventful postop course and was discharged home on POD 4. Pt Condition on Discharge: Good Discharge Disposition: Disch w/ Home Health Serv Discharge Instructions DIET: Follow Instructions for: Heart Healthy Diet Activities you can perform: Weight Bearing as Efe, Shower Only-No Bath Activities to avoid: Lifting/Bending, Driving Follow up Referrals: Cardiology Surgical New Medications: Amiodarone (Amiodarone) 200 Mg Tab 200 MG PO Q12HR Regulate Heart Beat #28 Ref 0 TAB Atorvastatin (Atorvastatin) 40 Mg Tab 40 MG PO HS Cholesterol Management #30 Ref 3 TAB Docusate Sodium (Dok) 100 Mg Cap 100 MG PO BID Constipation #28 Ref 0 CAP Metoprolol Tartrate (Metoprolol Tartrate) 25 Mg Tab 25 MG PO BID Blood Pressure Management #60 Ref 3 TAB Multiple Vitamins W/ Minerals (Thera M Plus) 1 Tab 1 TAB PO DAILY Nutritional Supplement #100 Ref 3 TAB Oxycodone-Acetaminophen (Oxycodone-Acetaminophen) 5-325 mg Tab 1 TAB PO Q3H PRN PAIN SCALE 1 TO 5 #30 Ref 0 TAB Pantoprazole (Pantoprazole) 40 Mg Tab 40 MG PO DAILY@06 Prevent Stress Ulcers #28 Ref 0 TAB Ramipril (Ramipril) 2.5 Mg Cap 2.5 MG PO DAILY Blood Pressure Management #30 Ref 1 CAP Continued Medications: Aspirin DR (Aspirin EC) 81 Mg Tabdr 81 MG PO DAILY Ref 0 TAB Discontinued Medications: Losartan (Losartan) 100 Mg Tab 100 MG PO DAILY Blood Pressure Management #30 Ref 0 TAB Nettie Ball MD Sep 13, 2016 09:41
[2016-09-13] MEDS: RAMIPRIL 2.5 MG CAP PO SCH (12:04)
[2016-09-13] MEDS: SENNOSIDES 8.6 MG TAB PO SCH (21:00)
[2016-09-13] MEDS: ATORVASTATIN 40 MG TAB PO SCH (21:12)
[2016-09-14] VITALS (16 sets, daily range): BP systolic 99–116; BP diastolic 55–58; PULSE 60–80; RESP 18; TEMP 98–98.2; O2SAT 94–95
[2016-09-14] MEDS: PANTOPRAZOLE SOD 40 MG DELAYED RELEASE TAB PO SCH (06:16)
[2016-09-14] MEDS: MULTIVITAMINS/MINERALS THERAPEUTIC TAB PO SCH (08:31)
[2016-09-14] MEDS: METOPROLOL TARTRATE 25 MG TAB PO SCH (08:31)
[2016-09-14] MEDS: amLODIPine BESYLATE 5 MG TAB PO SCH (08:32)
[2016-09-14] MEDS: RAMIPRIL 2.5 MG CAP PO SCH (08:32)
[2016-09-14] MEDS: AMIODARONE 200 MG TAB PO SCH (08:32)
[2016-09-14] MEDS: ASPIRIN 81 MG CHEW TAB PO SCH (08:32)
[2016-09-14] MEDS: SODIUM CHLORIDE 0.9% FLUSH 10 ML FLUSH IV FLUSH SCH (08:33)
[2016-09-14] MEDS: POLYETHYLENE GLYCOL 17 GM PKG PO SCH (08:34)
[2016-09-14] MEDS: MAGNESIUM HYDROXIDE SUSP 30 ML CUP PO SCH (08:34)
[2016-09-14] MEDS: DOCUSATE SODIUM 100 MG CAP PO SCH (08:34)
== END 2016-09-14 12:15 | disposition home health service (06) | DRG 234 ==
LOC: NEPC 16:35 → NEDA 19:42 → HCIS 22:16 → HCVR 09-10 11:55 → HCIN 09-11 12:38
PROVIDERS: ADMIT Thoracic Surgery (Cardiothoracic Vascular Surgery); ATTEND Thoracic Surgery (Cardiothoracic Vascular Surgery)
PROC: 4A023N7 Measurement of Cardiac Sampling and Pressure, Left Heart, Percutaneous Approach (ICD-10-PCS; 2016-09-05)
PROC: B2111ZZ Fluoroscopy of Multiple Coronary Arteries using Low Osmolar Contrast (ICD-10-PCS; 2016-09-05)
PROC: B2151ZZ Fluoroscopy of Left Heart using Low Osmolar Contrast (ICD-10-PCS; 2016-09-05)
PROC: B41F1ZZ Fluoroscopy of Right Lower Extremity Arteries using Low Osmolar Contrast (ICD-10-PCS; 2016-09-05)
PROC: 02100Z9 Bypass Coronary Artery, One Artery from Left Internal Mammary, Open Approach (ICD-10-PCS; 2016-09-10)
PROC: 06BQ4ZZ Excision of Left Saphenous Vein, Percutaneous Endoscopic Approach (ICD-10-PCS; 2016-09-10)
PROC: 5A1221Z Performance of Cardiac Output, Continuous (ICD-10-PCS; 2016-09-10)
PROC: 021209W Bypass Coronary Artery, Three Arteries from Aorta with Autologous Venous Tissue, Open Approach (ICD-10-PCS; principal; 2016-09-10 06:57)
DX: I21.4 Non-ST elevation (NSTEMI) myocardial infarction (principal); J81.1 Chronic pulmonary edema; I25.84 Coronary atherosclerosis due to calcified coronary lesion; I10 Essential (primary) hypertension; I25.10 Atherosclerotic heart disease of native coronary artery without angina pectoris; E78.5 Hyperlipidemia, unspecified; Z82.49 Family history of ischemic heart disease and other diseases of the circulatory system; Z87.891 Personal history of nicotine dependence
CPT/HCPCS: 71010; 80048; 80053; 80061; 81001; 82550; 82552; 82948; 83036; 83735; 83880; 84484; 85014; 85025; 85027; 85610; 85730; 86850; 86900; 86901; 86920; 87641; 93005; 93306; 93458; 93880; 93970; 93998; 94002; 94010; 94150; 94640; 94664; 94667; 94668; 96374; 96375; C1760; C1769; C1893; G0269; J0131; J0171; J0690; J1644; J1815; J1940; J2150; J2250; J2405; J2440; J2930; J3010; J3370; J3475; J3480; P9047; Q9967